=== PATIENT | male | born 1945 | race African-American/Black ===

== ENCOUNTER 2016-07-27 05:41 | Inpatient (IN) | payer OTHER ==
[~2016-07-27] VITALS: Ht 188 cm; Wt 112.0 kg
--- NOTE | ~2016-07-27 | HC ---
[facility] [place] [address] CONSULTATION Name: DONTE GAN Room #: 203-P [facility] IN .R.#: [id number] Admission: 07/27/16 Attend Phys: Brad Murrell MD Discharge: 07/31/16 Date of : 47 Report #: [id number] THIS REPORT FOR: //name// CC: Ceasar Mendez FAM unknown Brad Murrell PRIMARY CARE PHYSICIAN: Not known. REFERRING PHYSICIAN: Brad Murrell M.D. REASON FOR REFERRAL: Hypotension and dyspnea. HISTORY OF PRESENT ILLNESS: The patient is a 71-year-old -[place] male who was brought from his nursing care facility to the Emergency Room due to hypotension. His blood pressure was said to be 80/40 mmHg. A pulmonary critical consultation was requested. The patient resides at a retirement due to multiple medical problems including right BKA, end-stage renal disease requiring hemodialysis. According to records, the patient became argumentative earlier today and wanted to get out of bed. The patient uses O2 chronically. When they assessed him, the patient was found to be hypotensive and he proceeded to the Emergency Room. The patient is more awake now. He states that his back hurts. Otherwise, he states that he feels fine. He does not know why they have brought him to the hospital. Currently, he denies any dyspnea, chest pain or productive cough. PAST MEDICAL HISTORY: The patient was last hospitalized in March 2016 at [facility] for hyperkalemia. He had been seen by this physician in September. PAST MEDICAL HISTORY: Revealed end-stage renal disease due to longstanding diabetes mellitus, on hemodialysis, lumbar spinal stenosis with multiple back surgeries, leading to paraplegia due to severe spinal stenosis, dyslipidemia, sick sinus syndrome, status post permanent pacemaker placement, permanent atrial fibrillation on chronic anticoagulation, diabetes mellitus type 2 and hypertension. PAST SURGICAL HISTORY: As mentioned above including multiple back surgeries, right BKA, fistula placement for his dialysis, cholecystectomy and prior knee surgery. ALLERGIES: MORPHINE, FENTANYL, LOPRESSOR, CLONIDINE and DILTIAZEM, which causes [facility] [address] [place] [address] CONSULTATION Name: DONTE GAN Room #: 203-P [facility] IN M.R.#: [id number] Admission: 07/27/16 Attend Phys: Brad Murrell MD Discharge: 07/31/16 Date of : 47 Report #: [id number]. MEDICATIONS: List reviewed and is in the MAR. FAMILY HISTORY: Noncontributory. SOCIAL HISTORY: He resides at a nursing care facility. He denies any tobacco or alcohol use. He states that he does have family who lives in town. REVIEW OF SYSTEMS: As above, otherwise 10-point system review negative. He has been on O2, more recently at 2 liters chronically. PHYSICAL EXAMINATION: GENERAL: He is awake, in no apparent distress. VITAL SIGNS: Temperature is 98 degrees Fahrenheit, pulse is 60, respiratory rate is 18, blood pressure 125/80 mmHg and saturation 100%. HEENT: Normocephalic and atraumatic. NECK: Supple, without any lymphadenopathy or thyromegaly. CHEST: Breath sounds are decreased without obvious wheezes. No rales. CARDIOVASCULAR: Heart sounds are distant. No obvious murmurs or gallop. Pulses are 2+/4+ bilaterally. ABDOMEN: Soft, obese, moderately distended. Bowel sounds are distant. GENITOURINARY: Deferred. RECTAL: Deferred. EXTREMITIES: Remarkable for right BKA, otherwise no cyanosis, clubbing or edema. LABORATORY DATA: The patient has undergone extensive workup since admission. This includes V/Q scan which showed low probability scan. Leg Doppler ultrasound was negative for DVT. CT abdomen and pelvis shows mild right hydroureteronephrosis, left and distal colon distension with stool suggesting constipation and hepatic steatosis. Ammonia level was normal. Sodium 136, potassium 7.1, chloride 96, CO2 is 33, BUN is 58 and creatinine is 5.3. Liver function tests are mildly abnormal. WBC 6900, hemoglobin is 12.3 and platelets are normal. INR is 1.6. Arterial blood gas revealed pH 7.24, pCO2 of 61, pO2 of 91 on 2 liters of O2. Albumin is 2.8. IMPRESSION AND PLAN: 1. Apparent hypotension in this 71-year-old -[place]ian male with multiple medical problems including end-stage renal disease, apparent chronic hypoxic respiratory failure, paraplegia due to multiple back surgeries. His hypotension appears to have resolved. I do not think it is related to pulmonary embolus, given the low probability scan along with negative leg Doppler ultrasound. Note that low probability scan still runs a low risk for pulmonary embolus, but clinically I do not think the patient has pulmonary embolus at this time. [address] [place] [address] CONSULTATION Name: DONTE GAN Room #: 203-P [facility] IN M.R.#: [id number] Admission: 07/27/16 Attend Phys: Brad Murrell MD Discharge: 07/31/16 Date of : 47 Report #: [id number] 2. Chronic hypercapnic hypoxic respiratory insufficiency. The patient has been on 2 liters of O2. Given his body habitus with morbid obesity, suspect component of obesity hypoventilation syndrome and probable obstructive sleep apnea. Would recommend keeping his saturation around 88%-90% to avoid paradoxical hypercapnia. 3. Abdominal distention, CT of the abdomen suggest constipation. Bowel regimen to help will be beneficial. 4. End-stage renal disease with hyperkalemia. 5. Permanent atrial fibrillation, on chronic anticoagulation. The patient had been on Coumadin in the past. This again makes pulmonary embolus less likely. 6. Paraplegia due to severe lumbar stenosis with multiple back surgeries. The patient appears to be doing fairly well from a pulmonary standpoint. Wean O2 for saturation up to 88%-90%. Continue other medical management as you are including treatment of hyperkalemia. The patient will benefit from bowel regimen given constipation. If able, the patient should be screened for possible sleep apnea. This can be performed as an outpatient. Thank you for this consultation. <ELECTRONICALLY SIGNED> By: Steve Bardales MD 08/01/16 1634 18 [id number] Steve Bardales MD /nt
--- NOTE | ~2016-07-27 | HC ---
[facility] [place] [address] CONSULTATION Name: DONTE GAN Room #: 203-P [facility] IN ..#: [id number] Admission: 07/27/16 Attend Phys: Brad Murrell MD Discharge: 07/31/16 Date of : 47 Report #: [id number] THIS REPORT FOR: //name// CC: Ceasar Mendez FAM unknown Brad Murrell REASON FOR CONSULTATION: ESRD. REASON FOR PRESENTATION: Elevated potassium. HISTORY OF PRESENT ILLNESS: The patient was transferred from his nursing facility. He had been seen multiple times by our team in the last few years. He has end-stage renal disease, maintained on hemodialysis every Thursday, Thursday and Thursday. He is known to have paraplegia, with multiple back surgeries in the past. He has a right below-knee amputation. He was last seen by back in March of last year. He presented from his dialysis facility not feeling well. No chest pain or shortness of breath. Investigations are being done for his presenting complaints and on labs, he was found to have an elevated potassium and I was asked to manage his end-stage renal disease. Looking at the labs that were sent from his dialysis facility, it does look like that the patient suffers from hyperkalemia. PAST MEDICAL HISTORY: 1. End-stage renal disease, maintained on dialysis every Thursday, Thursday and Thursday. 2. Diabetes mellitus. 3. Hypertension. 4. Multiple back surgeries. 5. Paraplegic. 6. Right below-knee amputation. 7. Pacemaker insertion. 8. Laparoscopic cholecystectomy. MEDICATIONS: 1. Amitriptyline. 2. Sensipar. 3. Metoclopramide. 4. Omeprazole. 5. Actos. 6. Renvela. 7. Coumadin. SOCIAL HISTORY: He resides in a nursing facility. . No drug or alcohol abuse. FAMILY HISTORY: Hypertension, as he stated. [facility] [address] [place] [address] CONSULTATION Name: DONTE GAN Room #: 203-P [facility] IN [facility].#: [id number] Admission: 07/27/16 Attend Phys: Brad Murrell MD Discharge: 07/31/16 Date of : 47 Report #: [id number] REVIEW OF SYSTEMS: GENERAL: Significant for weakness. CARDIOVASCULAR: No chest pain. PULMONARY: No cough or hemoptysis. GASTROINTESTINAL: No nausea or vomiting. MUSCULOSKELETAL: Amputation on the right side. Most of the time he is ambulatory. PHYSICAL EXAMINATION: VITAL SIGNS: Blood pressure is 112/60. HEAD AND NECK: No jugular venous distention, no bruit, no thyromegaly. Left-sided pacemaker. CHEST: Decreased air entry bilaterally. CARDIOVASCULAR: Regular. No rub detected. ABDOMEN: Distended. LOWER EXTREMITIES: Right BKA with chronic venous stasis changes on the left side. LABORATORY DATA: Laboratory values reviewed. Potassium is 7.1, BUN is 58 and creatinine is 5.3. White blood cell count 6.9, hemoglobin 12.3. Blood gases sample is not sent yet. Chest x-ray reviewed. CT abdomen and pelvis was reviewed. It does look like that the patient has mild right hydroureteronephrosis with unknown significance at this point. ASSESSMENT, IMPRESSION AND PLAN: 1. End-stage renal disease. 2. Hyperkalemia. 3. Diabetes mellitus. 4. Hypertension. 5. A whole list of other medical issues, including hypoalbuminemia, anemia and peripheral vascular disease. 6. Medical management of his hyperkalemia today. Repeat potassium later today. 7. Dialysis will be arranged for the patient for tomorrow if his potassium does not improve with the medical management today. Otherwise, I will have to dialyze today. 8. We will defer management of his other aspects and medical issues to the admitting hospitalist team. <ELECTRONICALLY SIGNED> By: Ceasar Mendez MD 08/01/16 0926 1018 [id number] Ceasar Mendez MD /nt
--- NOTE | ~2016-07-27 | HC ---
[facility] [place] [address] CONSULTATION Name: DONTE GAN Room #: 203-P [facility] IN ..#: [id number] Admission: 07/27/16 Attend Phys: Brad Murrell MD Discharge: Date of : 47 Report #: [id number] THIS REPORT FOR: //name// CC: Ceasar Mendez FAM unknown Brad Murrell Infectious Disease Consultation REASON FOR CONSULTATION: I was asked to evaluate concerning hypotension and Gram-negative bacteremia. HISTORY OF PRESENT ILLNESS: The patient was a 71-year-old prison resident with end-stage renal disease, diabetes, hypertension, peripheral vascular disease. On day of admission, he was noted to have had hypotension without other specific complaints. He had had some abdominal bloating. Denies being constipated. He has had incontinence of soft stool since being admitted. In the Emergency Room, he was hyperkalemic. He was given some Kayexalate for this. He is on a 3 times a week dialysis schedule. No cough or sputum production. He is on 2 liters of oxygen per nasal cannula. He is on dialysis currently without complaint, although he is very lethargic. He has had a right below knee amputation for vascular disease. ALLERGIES: CLONIDINE, DILTIAZEM, FENTANYL, METOPROLOL, MORPHINE. MEDICATIONS: As noted on his MAR, now on vancomycin and Zosyn. PAST MEDICAL HISTORY: Diabetes, hypertension, hyperlipidemia, end-stage renal disease, right upper extremity AV fistula, right below knee amputation, cholecystectomy, pneumonia, permanent pacemaker, multiple surgeries to his lumbar spine with hardware placed. SOCIAL HISTORY: He has been residing in a prison, uses a wheelchair, nonsmoker, no significant alcohol intake. FAMILY HISTORY: Noncontributory. PHYSICAL EXAMINATION: VITAL SIGNS: Afebrile. Initial blood pressure was , now 144/33 on dialysis. Oxygen 2 liters per nasal cannula. HEENT: Unremarkable. CHEST: Clear anterolaterally. HEART: Regular, without murmur. ABDOMEN: Protuberant. No appreciable masses or hepatosplenomegaly. Mild tenderness. Definitely no rebound and no guarding. EXTREMITIES: Right below knee amputation unremarkable. He was incontinent of [facility] [address] [place] [address] CONSULTATION Name: DONTE GAN Room #: 203-P [facility] IN [facility].#: [id number] Admission: 07/27/16 Attend Phys: Brad Murrell MD Discharge: Date of : 47 Report #: [id number] soft stool. External genitalia unremarkable. Left lower extremity was cool below the knee. He had an ulcer over the patella. He also had an eschar over his medial heel and his first toe on the left. Could not palpate pulses. LABORATORY STUDIES: Sodium 133, potassium 5.5, chloride 96, bicarbonate 27, creatinine 5.7, his initial potassium was 7.1. Liver function test normal. Hemoglobin 12.1, white count 6.0, platelet count 154,000. Segs 68%, 1% band, 18% lymphs. Blood cultures from one taken yesterday morning is growing gram-negative bacilli. Further identification is pending. VQ scan negative. CT scan of abdomen and pelvis showed left basilar infiltrate. Chest x-ray did not confirm this. Abdomen CT showed some hydronephrosis on the right. No stone evident. Large amount of stool in the rectosigmoid. IMPRESSION: A 71-year-old diabetic, end-stage renal disease, hypertension with a hypotensive episode and Gram-negative bacteremia. Sources of his bacteremia would most likely include: From a possible segment of ischemia due to his large amount of retained stool in the distal colon versus right upper urinary tract versus left lung pneumonitis versus left lower extremity wound and ischemia. PLAN: 1. Recommend continuing Zosyn for his antibiotic coverage, pending further micro reports. 2. Repeat blood cultures while on dialysis. 3. Continue with laxatives to decompress the bowel. 4. Obtain any records from nephrology to determine if he has had a previous CAT scan or ultrasound to delineate the duration of his right hydronephrosis. 5. Check Dopplers of his left lower extremity. <ELECTRONICALLY SIGNED> By: Wood Lloyd MD 07/30/16 1027 1101 1148 Wood Lloyd MD /nt
--- NOTE | ~2016-07-27 | EKG ---
[place] [address] [facility] [place] [address] ELECTROCARDIOGRAM REPORT Name: DONTE GAN Nieves Room #: 203-P ADM IN M.R.#: [id number] Admission: 07/27/16 Attend Phys: Brad Murrell MD Discharge: Date of : 47 Report #: [id number] THIS REPORT FOR: //name// [facility] ED Test Date: 2016-07-27 Test Time: 07:09:46 Pat Name: DONTE GAN Department: Room: 203 Gender: M Pillow Cleaner: ANTHONY : 1945 Requested By: Komal Gerard Order Number: [id number] MD: Vernon Burns Measurements Intervals [place] Rate: 60 P: 0 AK: 204 QRS: 129 QRSD: 163 T: 21 QT: 482 QTc: 482 Interpretive Statements Ventricular-paced rhythm No further analysis attempted due to paced rhythm No previous ECG available for comparison Electronically Signed On 07-28-2016 8:05:23 [employer] by Vernon Burns [email or web address] <ELECTRONICALLY SIGNED> By: Vernon Burns MD, [facility] 07/28/16804 8 8 Vernon Burns MD, FACC /EPI
--- NOTE | ~2016-07-27 | H ---
[facility] [place] [address] HISTORY AND PHYSICAL Name: DONTE GAN Room #: 203-P ADM IN M.R.#: [id number] Admission: 07/27/16 Attend Phys: Brad Murrell MD Discharge: Date of : 47 Report #: [id number] THIS REPORT FOR: //name// CC: Ceasar Mendez FAM unknown BEA PENNY DO Brad Murrell DATE OF SERVICE: 07/27/2016 CHIEF COMPLAINT: Low blood pressure. HISTORY OF PRESENT ILLNESS: The patient is a 71-year-old pen[facility] resident with history of spinal stenosis, polyneuropathy, end-stage renal disease on hemodialysis, type 2 diabetes and hypertension, who was brought into the Emergency Room because of low blood pressure. [facility] blood pressure [facility] the [facility] was 80/40. The patient noticed to have low blood pressure this morning when the patient became augmentative and wanted to get rid of that. He normally uses oxygen at the penitentiary. Workup in the Emergency Room included a CAT scan, which showed a left basilar infiltrate and hyperkalemia. The patient complains of bloated feeling in his abdomen. If he says he has not been constipated, he has had regular BMs. He normally gets dialyzed Thursday, Thursday and Thursday, and last dialysis was 2 days ago. He is found to be hyperkalemic. He has been evaluated by Dr. Mendez and the patient has received insulin dextrose, albuterol high dose along with Kayexalate. The patient might be scheduled for dialysis as per Dr. Mendez. The patient has had cough with dark sputum. Denies any chest pain or dizziness. Denies any nausea or vomiting. PAST MEDICAL HISTORY: Significant for diabetes, hypertension and hyperlipidemia. He is already on hemodialysis. Right arm fistula. Knee surgery, cholecystectomy and right below knee amputation. He was admitted with pneumonia in 03/2016. He has a pacemaker. He has had a back surgery x 4. ALLERGIES: HE IS ALLERGIC TO CLONIDINE, DILTIAZEM, FENTANYL, METOPROLOL, AND MORPHINE. PLEASE LOOK AT THE NURSING DOCUMENTATION FOR THE REACTION. HOME MEDICATIONS: Please look at the nursing documentation. Home meds were reviewed. SOCIAL HISTORY: He is a penitentiary resident. He is primarily bed bound and wheelchair bound. He denies any smoking, alcohol abuse, or illicit drug abuse. FAMILY HISTORY: Significant for hypertension. [facility] [address] [place] [address] HISTORY AND PHYSICAL Name: DONTE GAN Nieves Room #: 203-P [facility].#: [id number] Admission: 07/27/16 Attend Phys: Brad Murrell MD Discharge: Date of : 47 Report #: [id number] REVIEW OF SYSTEMS: CONSTITUTIONAL: The patient is kind of lethargic, but he does awake upper and he is oriented to self. He follows simple commands. Review of systems is kind of limited from the patient at present. PHYSICAL EXAMINATION: VITAL SIGNS: Reveal blood pressure initially was 78/46, , heart rate of 60 per minute, afebrile. GENERAL: The patient is lethargic, but he does wake up and answers questions. He is oriented to person and self. EYES: Pupils are equal and reactive to light. THROAT: Very dry oral mucosa. NECK: Supple, no JVD, no bruit, no lymphadenopathy. CARDIOVASCULAR SYSTEM: S1, S2, negative S3. CHEST: Bilateral air entry present, few wheezes noted in the bases, crackles noted in the bases, more in the left base. ABDOMEN: Soft, bowel sounds present, no mass, no organomegaly, no tenderness. Abdomen is mildly distended. EXTREMITIES: Periphery: Right below knee amputation. On the left leg, there is trace to 1+ edema. Dorsalis pedis is very feeble to 1+ on the left side. He has some ischemic changes to the tip of his great toe. He has a 2 cm superficial wound with an eschar on the left knee. LABORATORY DATA: Reviewed. EKG showed a paced rhythm. His potassium was elevated at , BUN and creatinine of 58 and 5.3. AST and ALT are within normal limit. Total protein was 2.0. Albumin is 2.8. White count is 6.9 with 70% neutrophils. Lactate is 1.5, hemoglobin is 12.3 and platelet is 163. He had a venous of lower extremities which showed no evidence of any deep venous thrombosis. V/Q scan was reported as low probability for PE. Chest x-ray showed cardiomegaly without any overt failure. CT of the abdomen and pelvis showed constipation, hepatic steatosis, and left basilar infiltrate. ASSESSMENT AND PLAN: 1. Hypertension. It could be secondary to early sepsis. His blood pressure has improved in the Emergency Room. We will monitor his blood pressure closely. 2. Left basilar pneumonia. The patient will be treated with Zosyn and vancomycin. Follow cultures and adjust antibiotic as needed, will also be placed on DuoNeb. 3. Hyperkalemia. The patient has been treated with Kayexalate, insulin, Dextrose and high dose albuterol. The patient has been evaluated by renal and he will be hemodialyzed as per renal. 4. End-stage renal disease, hemodialysis as per renal. 5. Diabetes. We will place him on Accu-Chek and sliding scale insulin. We will continue him on pioglitazone. 6. Deep vein thrombosis prophylaxis. The patient is already on Coumadin. We [facility] [address] [place] [address] HISTORY AND PHYSICAL Name: DONTE GAN Room #: 203-P ADM IN M.R.#: [id number] Admission: 07/27/16 Attend Phys: Brad Murrell MD Discharge: Date of : 47 Report #: [id number] will recheck on his INR. 7. History of atrial flutter, on Coumadin. We will recheck his INR and continue his Coumadin. 8. History of hypertension. Presently, his blood pressure is on the low end, we will hold off on Coreg at present and monitor closely. 9. Peripheral vascular disease and status post right below knee amputation. 10. Generalized debility and mild to moderate protein malnutrition. we will also go ahead and check on his blood gases to rule out any hypercapnia. <ELECTRONICALLY SIGNED> By: Brad Murrell MD 07/28/16 0949 1047 2309 Brad Murrell MD /nt
[~2016-07-27 05:41] MED LIST: ACTOS 45 MG45 M1 PO; AMITRIPTYLINE H25 M2 PO; ASPIR 8181 MG PO; BACITRACIN 500U30 G1 TOP; CARVEDILOL12.5 MG PO; CITRATE OF MAG296 ML PO; COLACE100 MG PO; COUMADIN 5 MG TA5 M1 PO; COUMADIN7.5 MG PO; DOXYCYCLINE 10100 M1 PO; FENTANYL PA25 MCG/HR TRANSDERM; GLUCOSE GEL38 GM; GLUCOSE1 EACH PO; HEPARIN SO1000 UNIT2 IV; HYDROCODON-ACE1 EAC7 PO; IBUPROFEN 200200 M1 PO; IPRAT-ALBUT 0.5-3 ML IH; JANUVIA25 MG PO; KAYEXALATE15 GM/601 GT; KAYEXALATE15 GM/601 PO; LACTULOSE10 GM/152; LEVAQUIN 500 M500 M2 PO; MEGESTROL ACETA40 MG PO; MELATONIN3 MG PO; MIRALAX17 GM PO; MOBIC15 MG PO; MUCINEX TA600 MG/TA2 PO; NEPHROCAPS SOFT1 CAP PO; NOVOLOG100 UNIT/1 SUBQ; OMEPRAZOLE40 MG PO; OXYCODONE HCL5 MG PO; OXYCONTIN10 M1 PO; PEG3350510 GM PO; PIOGLITAZONE15 MG PO; PRO-STAT LIQUID30 M1 PO; REGLAN 10 MG TA10 MG PO; RENAL CAPS SOFTG1 MG PO; RENVELA800 MG PO; SENNA CONCENTR8.6 MG PO; SENOKOT-S1 TA1 PO; SENSIPAR 30 MG30 M1 PO; SENSIPAR 30 MG30 MG PO; TYLENOL325 MG PO; VANCOMYCIN HCL1 GM IV; ZOFRAN ODT4 MG DISSOLVE
[2016-07-27 05:49] VITALS: BP 78/46
[2016-07-27 06:20] LABS: HEMATOCRIT 37.5 % (42.0-52.0); HEMOGLOBIN 12.3 gm/dL (14.0-18.0); MCH 31.3 pg (26.0-34.0); MCHC 32.9 % (28.0-37.0); PLATELET COUNT 163 thou/uL (150-400); RBC 3.95 mil/uL (4.50-6.00); RDW 16.7 % (10.5-14.5); WBC 6.9 thou/uL (4.0-11.0)
[2016-07-27 06:23] LABS: MANUAL DIFF YES
[2016-07-27 06:41] LABS: CALCIUM 8.6 mg/dL (8.5-10.1); CREATININE 5.3 mg/dL (0.6-1.3)
[2016-07-27 06:45] LABS: POTASSIUM 7.1 mmol/L (3.5-5.1)
[2016-07-27 06:46] LABS: ALBUMIN 2.8 g/dL (3.4-5.0); DIRECT BILIRUBIN 0.1 mg/dL (<0.1-0.3); MAGNESIUM 2.3 mg/dL (1.8-2.4); TOTAL BILIRUBIN 0.9 mg/dL (<0.1-1.0)
[2016-07-27] MEDS ORDERED: TESSALON PERLE100 MG PO (06:51)
[2016-07-27] MEDS ORDERED: KLOR-CON 1010 MEQ PO (06:51)
[2016-07-27 07:30] VITALS: BP 117/60
[2016-07-27 08:44] LABS: ABSOLUTE NEUTROPHILS 4.9 thou/uL (1.4-8.2); ANISOCYTOSIS 1+; TOTAL CELL COUNT 100
[2016-07-27 11:02] LABS: INR 1.6
[2016-07-27 11:30] VITALS: BP 121/68
[2016-07-27 11:45] VITALS: BP 120/74
[2016-07-27 12:15] LABS: ABG SAMPLE TYPE ARTERIAL; BE(vivo) -0.3 mmol/L (-2 to +3); HCO3 27.8 mmol/L (22.0-26.0); LACTATE 1.79 mmol/L (0.5-2.0); O2(CT) 17.8 mL/dL (15.0-23.0); O2Hb 95.4 % (92.0-98.0); PO2 100.6 mmHg (80.0-100.0); sO2 96.7 % (92.0-98.0); tCO2 29.6 mmol/L (24.0-30.0)
[2016-07-27 12:16] LABS: STICK SITE L.BRACHIAL; pH 7.276 (7.360-7.450)
[2016-07-27 16:30] VITALS: BP 125/77
[2016-07-27 20:02] LABS: ABG SAMPLE TYPE ARTERIAL; HCO3 26.2 mmol/L (22.0-26.0); LACTATE 2.19 mmol/L (0.5-2.0); O2(CT) 16.7 mL/dL (15.0-23.0); O2Hb 94.2 % (92.0-98.0); PCO2 61.5 mmHg (35.0-45.0); PO2 91.3 mmHg (80.0-100.0); pH 7.248 (7.360-7.450); sO2 95.5 % (92.0-98.0); tCO2 28.1 mmol/L (24.0-30.0)
[2016-07-27 20:03] LABS: STICK SITE L.BRACHIAL
[2016-07-27 20:37] VITALS: BP 112/69
[2016-07-28] VITALS (7 sets, daily range): BP systolic 109–144; BP diastolic 33–71
[2016-07-28 08:36] LABS: HEMATOCRIT 37.4 % (42.0-52.0); HEMOGLOBIN 12.1 gm/dL (14.0-18.0); MCH 30.9 pg (26.0-34.0); MCHC 32.3 % (28.0-37.0); MCV 95.5 fL (80.0-100.0); PLATELET COUNT 154 thou/uL (150-400); RBC 3.91 mil/uL (4.50-6.00); RDW 17.3 % (10.5-14.5)
[2016-07-28 08:37] LABS: MANUAL DIFF YES
[2016-07-28 08:49] LABS: ALBUMIN 2.6 g/dL (3.4-5.0); CALCIUM 8.1 mg/dL (8.5-10.1); CREATININE 5.7 mg/dL (0.6-1.3); MAGNESIUM 2.2 mg/dL (1.8-2.4); PHOSPHORUS 4.7 mg/dL (2.5-4.9); POTASSIUM 5.5 mmol/L (3.5-5.1)
[2016-07-28 09:06] LABS: ABSOLUTE NEUTROPHILS 4.1 thou/uL (1.4-8.2); ANISOCYTOSIS 1+; TOTAL CELL COUNT 100
[2016-07-28 09:08] LABS: INR 1.7; PROTIME 18.1 Seconds (9.3-11.4)
[2016-07-29 03:14] VITALS: BP 94/53
[2016-07-29 07:30] VITALS: BP 101/57
[2016-07-29 07:35] LABS: INR 1.9; PROTIME 19.9 Seconds (9.3-11.4)
[2016-07-29 11:30] VITALS: BP 97/49
[2016-07-29 16:40] VITALS: BP 81/49
[2016-07-29 19:39] VITALS: BP 82/35
[2016-07-30 03:27] VITALS: BP 93/54
[2016-07-30 07:28] LABS: HEMATOCRIT 34.7 % (42.0-52.0); HEMOGLOBIN 11.4 gm/dL (14.0-18.0); MCH 31.2 pg (26.0-34.0); MCHC 32.9 % (28.0-37.0); MCV 94.9 fL (80.0-100.0); PLATELET COUNT 136 thou/uL (150-400); RBC 3.65 mil/uL (4.50-6.00); RDW 16.7 % (10.5-14.5); WBC 5.3 thou/uL (4.0-11.0)
[2016-07-30 07:34] LABS: MANUAL DIFF YES
[2016-07-30 07:37] LABS: ALBUMIN 2.4 g/dL (3.4-5.0); CALCIUM 7.9 mg/dL (8.5-10.1); CREATININE 5.6 mg/dL (0.6-1.3); POTASSIUM 4.7 mmol/L (3.5-5.1); TOTAL BILIRUBIN 0.8 mg/dL (<0.1-1.0); TOTAL PROTEIN 6.6 g/dL (6.4-8.2)
[2016-07-30 07:45] VITALS: BP 110/64
[2016-07-30 08:10] LABS: ABSOLUTE NEUTROPHILS 3.7 thou/uL (1.4-8.2); ANISOCYTOSIS 1+; PLATELET ESTIMATE DECREASED; TOTAL CELL COUNT 100
[2016-07-30 08:45] LABS: INR 1.9; PROTIME 19.8 Seconds (9.3-11.4)
[2016-07-30 11:25] VITALS: BP 91/51
[2016-07-30 16:50] VITALS: BP 101/63
[2016-07-30 19:58] VITALS: BP 114/59
[2016-07-31 03:46] VITALS: BP 109/65
[2016-07-31 09:10] VITALS: BP 137/72
[2016-07-31 13:00] VITALS: BP 130/70
[2016-07-31 15:24] VITALS: BP 165/70
[2016-07-31] MEDS ORDERED: DUONEB 2.5-0.5 M3 ML INH (15:38)
[2016-07-31] MEDS ORDERED: MELATONIN3 MG PO (15:38)
[2016-07-31] MEDS ORDERED: CARVEDILOL12.5 MG PO (15:38)
[2016-07-31] MEDS ORDERED: CIPRO500 MG PO (15:38)
== END 2016-07-31 18:17 | DRG 177 ==
LOC: ER 05:41 → 2N 08:35 → EROBS 08:35 → 2N 11:32
PROVIDERS: Emergency Medicine; Internal Medicine; Internal Medicine Endocrinology, Diabetes & Metabolism
PROC: 5A09357 Assistance with Respiratory Ventilation, Less than 24 Consecutive Hours, Continuous Positive Airway Pressure (ICD-10-PCS; 2016-07-27)
PROC: 5A1D60Z (ICD-10-PCS; principal; 2016-07-28)
DX: J15.6 Pneumonia due to other Gram-negative bacteria (principal); N18.6 End stage renal disease; J96.22 Acute and chronic respiratory failure with hypercapnia; J96.21 Acute and chronic respiratory failure with hypoxia; G82.20 Paraplegia, unspecified; E44.0 Moderate protein-calorie malnutrition; I12.0 Hypertensive chronic kidney disease with stage 5 chronic kidney disease or end stage renal disease; E87.5 Hyperkalemia; I49.5 Sick sinus syndrome; I48.2 Chronic atrial fibrillation; E78.5 Hyperlipidemia, unspecified; M48.06 Spinal stenosis, lumbar region; E11.51 Type 2 diabetes mellitus with diabetic peripheral angiopathy without gangrene; K59.00 Constipation, unspecified; E11.649 Type 2 diabetes mellitus with hypoglycemia without coma; R53.81 Other malaise; I95.9 Hypotension, unspecified; E11.22 Type 2 diabetes mellitus with diabetic chronic kidney disease; E78.00 Pure hypercholesterolemia, unspecified; Z90.49 Acquired absence of other specified parts of digestive tract; Z95.0 Presence of cardiac pacemaker; Z89.511 Acquired absence of right leg below knee; Z88.6 Allergy status to analgesic agent; Z88.8 Allergy status to other drugs, medicaments and biological substances; Z79.899 Other long term (current) drug therapy; Z79.82 Long term (current) use of aspirin; Z99.2 Dependence on renal dialysis; Z79.01 Long term (current) use of anticoagulants; Z68.31 Body mass index [BMI] 31.0-31.9, adult
CPT/HCPCS: 10081; 32100

== ENCOUNTER 2017-11-22 21:56 | Inpatient (IN) | payer OTHER ==
[~2017-11-22] VITALS: Ht 180.3 cm; Wt 112.3 kg
--- NOTE | ~2017-11-22 | HC ---
[facility] [place] [address] CONSULTATION Name: DONTE GAN Room #: 350-P [facility] IN M.R.#: [id number] Admission: 11/23/17 Attend Phys: Torres Singh DO Discharge: Date of : 47 Report #: [id number] THIS REPORT FOR: //name// CC: FAM unknown Torres Singh DATE OF SERVICE: 11/23/2017 REASON FOR PRESENTATION: Shortness of breath. REASON FOR CONSULTATION: End-stage renal disease. HISTORY OF PRESENT ILLNESS: This is a 72-year-old with past medical history of diabetes mellitus, hypertension, end-stage renal disease, maintained on hemodialysis every Thursday, Thursday, Thursday, status post pacemaker insertion. He does have obstructive sleep apnea and COPD. He was found to be hard to arouse on the day he presented to the Emergency Room. He stated that he had been having some shortness of breath. He also reported to have massive swellings of both upper extremities and lower extremities. On arrival to the Emergency Room, he was found to have pulmonary venous congestion suggestive of pulmonary edema. When I evaluated him this morning, he was lethargic. I ordered the blood gas and this revealed severe CO2 narcosis, requiring CPAP. I am being asked to manage his end-stage renal disease. PAST MEDICAL HISTORY: 1. End-stage renal disease. 2. Diabetes mellitus. 3. Hypertension. 4. Right AV fistula. 5. Back surgery. 6. Status post pacemaker insertion. 7. Peripheral vascular disease, status post BKA. 8. Paraplegia. 9. Atrial flutter. 10. COPD, obstructive sleep apnea. FAMILY HISTORY: Significant for diabetes mellitus and hypertension. SOCIAL HISTORY: Former smoker, quit 15 years ago. Stays in a nursing facility. No drug or alcohol abuse. REVIEW OF SYSTEMS: The patient was very lethargic this morning and was not able to provide me with the details of the review of system. MEDICATIONS: 1. Carvedilol. [facility] [address] [place] [address] CONSULTATION Name: DONTE GAN Room #: [address] [place] [address] [place] [facility].#: [id number] Admission: 11/23/17 Attend Phys: Torres Singh DO Discharge: Date of : 47 Report #: [id number] 2. Cinacalcet. 3. Sevelamer. 4. Amitriptyline. 5. Aspirin. 6. Lactulose. 7. Sitagliptin. PHYSICAL EXAMINATION: GENERAL: The patient was very lethargic, goes into episodes of sleepiness. VITAL SIGNS: Temperature was 37. Blood pressure was 112/59. HEAD AND NECK: Pickwickian features present. CARDIOVASCULAR: No rub detected, distant. CHEST: Bilateral crackles. ABDOMEN: Soft, nontender. LOWER EXTREMITIES: +3 edema with right below-knee amputation. LABORATORY DATA: Laboratory values reviewed. Blood gas with a pH of 7.2 and a pH of 65. Chemistry revealed sodium of 132, potassium 5.2, BUN of 70, creatinine of 6.3. IMAGING: Chest x-ray reviewed. Cardiomegaly present with bilateral pulmonary infiltrate. ASSESSMENT, IMPRESSION AND PLAN: 1. End-stage renal disease. 2. Respiratory failure, hypercapnic with CO2 narcosis. 3. Hyponatremia. 4. Hyperkalemia. 5. Chronic obstructive pulmonary disease. 6. Peripheral vascular disease. 7. Diabetes mellitus. 8. The patient will need to be placed on CPAP due to his CO2 narcosis. 9. Dialysis will be arranged with aggressive ultrafiltration today. 10. Routine care of his diabetes mellitus and hypertension. 11. Watch pulmonary status. 12. Aggressive ultrafiltration to try to help his volume status and his breathing issues. 13. Need pulmonary consultation. <ELECTRONICALLY SIGNED> By: Ceasar Mendez MD 11/25/17 0817 0855 [id number] Ceasar Mendez MD /nt
--- NOTE | ~2017-11-22 | HC ---
[facility] [place] [address] CONSULTATION Name: DONTE GAN Room #: 350-[facility] IN ..#: [id number] Admission: 11/23/17 Attend Phys: Torres Singh DO Discharge: 11/26/17 Date of : 47 Report #: [id number] THIS REPORT FOR: //name// CC: FAM unknown Torres Singh DATE OF SERVICE: 11/25/2017 TYPE OF REPORT: Pulmonary consultation. REFERRING PHYSICIAN: Torres Singh D.O. REASON FOR REFERRAL: COPD and chronic respiratory failure. HISTORY OF PRESENT ILLNESS: The patient is a 72-year-old -Chinese male who was brought to the Emergency Room when he was found to be hard to arouse. With his history of chronic lung disease, a pulmonary consultation was requested. The patient has multiple medical problems. He was previously hospitalized in July 2016. Going through the records, he was doing fairly well until the day of presentation and he was found to be difficult to arouse that evening. He was taking a nap at that time. For that reason, he was brought to the Emergency Room. When seen in the ER, he was awoken, he reports cough productive of clear sputum. He denies any fever, night sweats or chills, chest pain or productive cough. On initial evaluation including arterial blood gas, the patient was found to be iigmu-oh-thxikqe hypercapnic respiratory failure. For that reason, a pulmonary consultation requested. The patient has been seen by this physician from his last admission in July of 2016. There is also felt to have obesity hypoventilation syndrome along with sleep apnea. The patient had been given a BiPAP device in the past. It appears the patient may not have been compliant with the use of BiPAP. Otherwise, denies any complaints. He is currently undergoing dialysis. PAST MEDICAL HISTORY: Notable for end-stage renal disease due to longstanding diabetes mellitus, on hemodialysis; lumbar spinal stenosis; multiple back surgeries; paraplegia due to severe spinal stenosis; dyslipidemia; sick sinus syndrome, status post permanent pacemaker placement; permanent atrial fibrillation, on chronic anticoagulation; diabetes mellitus type 2; hypertension; COPD with presume RANDI and sleep apnea. [facility] [address] [place] [address] CONSULTATION Name: DONTE GAN Room #: 350-P [facility] IN M.R.#: [id number] Admission: 11/23/17 Attend Phys: Torres Singh DO Discharge: 11/26/17 Date of : 47 Report #: [id number] PAST SURGICAL HISTORY: As mentioned above including right BKA, fistula placement for hemodialysis, cholecystectomy and prior knee surgery. ALLERGIES: To MORPHINE; FENTANYL; LOPRESSOR; CLONIDINE and DILTIAZEM, which causes rash. HOME MEDICATIONS: List is reviewed. FAMILY HISTORY: Noncontributory. SOCIAL HISTORY: The patient resides in a senior living. Currently denies any tobacco or alcohol use. He has family who lives in town. REVIEW OF SYSTEMS: As mentioned above, otherwise 10-point system review negative. PHYSICAL EXAMINATION: GENERAL: He is awake and alert, in no apparent distress. VITAL SIGNS: Temperature is 98, respiratory rate is 20, pulse is 60, blood pressure is 110/65 mmHg and saturation 96%. HEENT: Normocephalic and atraumatic. NECK: Supple, without lymphadenopathy or thyromegaly. CHEST: Breath sounds are fair due to poor effort. Otherwise, no rales or wheezes. CARDIOVASCULAR: Normal S1 and S2. There are no murmurs or gallop. There is no JVDs. No carotid bruit. Pulses are 2+/4+ bilaterally. ABDOMEN: Soft and nontender. No organomegaly or masses felt. GENITOURINARY: Deferred. RECTAL: Deferred. EXTREMITIES: There are no signs of clubbing or edema. It is also remarkable for right BKA. RADIOLOGICAL DATA: Chest x-ray shows cardiomegaly, mild atelectasis in the left base, otherwise no obvious infiltrates. LABORATORY DATA: Electrolytes show sodium 132, potassium 5.2 and creatinine 6.3. WBC 9900 and hemoglobin 12.7. Arterial blood gas revealed pH 7.25, pCO2 of 65 and pO2 of 112 on O2. IMPRESSION: 1. Rgksh-dk-vltcfeu hypercapnic hypoxic respiratory failure in this 72-year-old -Chinese male. Etiology is felt to be related to underlying obesity hypoventilation syndrome, obstructive sleep apnea . 2. History of chronic obstructive pulmonary disease without obvious exacerbation. 3. Probable obstructive sleep apnea, obesity hypoventilation syndrome, I think [address] [address] CONSULTATION Name: MALIKDONTE J Room #: 350-P [facility] IN M.R.#: [id number] Admission: 11/23/17 Attend Phys: Torres Singh DO Discharge: 11/26/17 Date of : 47 Report #: [id number] the patient will benefit from bilevel positive airway pressure device to be used during sleep and p.r.n. 4. End-stage renal disease. 5. Encephalopathy, likely metabolic and toxic, much improved. 6. End-stage renal disease, undergoing hemodialysis. 7. Chronic hypercapnic respiratory failure, the patient has been on 2 liters of oxygen. 8. Morbid obesity. 9. Permanent atrial fibrillation, on chronic anticoagulation. 10. Severe lumbar stenosis resulting in paraplegia, multiple back surgeries. 11. Status post right below-knee amputation. RECOMMENDATION: Continue current care, BiPAP during sleep and p.r.n. Continue bronchodilators. Keep saturation around 90%-98%. Thank you for this consultation. <ELECTRONICALLY SIGNED> By: Steve Bardales MD 11/27/17 1659 1548 55 Steve Bardales MD /nt
--- NOTE | ~2017-11-22 | EKG ---
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1945 Requested By: Wood Hernandez Order Number: [id number] MD: Vernon Burns Measurements Intervals [place] Rate: 60 P: 0 MS: 202 QRS: 140 QRSD: 147 T: -5 QT: 467 QTc: 467 Interpretive Statements Ventricular-paced rhythm No further analysis attempted due to paced rhythm Compared to ECG 07/27/2016 07:09:46 No significant changes Electronically Signed On 11-23-2017 8:13:49 CDT by Vernon Burns [email or web address] <ELECTRONICALLY SIGNED> By: Vernon Burns MD, [facility] 11/23/17 0813 34 34 Vernon Burns MD, [facility] /EPI
--- NOTE | ~2017-11-22 | 2DMMODE ---
[facility] [place] [address] 2 D/M-MODE ECHOCARDIOGRAM Name: MALIKDONTE Nieves Room #: 350-P [facility] IN [facility]#: [id number] Admission: 11/23/17 Attend Phys: Torres Singh, Discharge: Date of : 47 Date of Service: 11/23/17 1123 Report #: [id number] THIS REPORT FOR: //name// APPROVED REPORT Study performed: 11/23/2017 09:37:30 EXAM: Comprehensive 2D, Doppler, and color-flow Echocardiogram Patient Location: Bedside Status: routine BSA: 2.31 HR: 60 bpm BP: 112/59 mmHg Other Information Study Quality: Technically DifficultTechnically Limited Indications Diabetes Pacemaker Hypertension/HDD Echo Enhancing Agent Indication: Endocardial border delineation Agent(s) / Amount(s) Used: , Optison 3 cc 2D Dimensions LVEF(%): 61.76 (>50%) IVSd: 17.43 (7-11mm) LVOT Diam: 23.23 (18-24mm) LVDd: 45.99 mm PWd: 16.98 (7-11mm) Ascending Ao: 30.73 (22-36mm) LVDs: 30.76 (25-40mm) Aortic Root: 39.62 mm Bell's LVEF: 61.76 % Pulmonary Valve PV Peak Minh.: 0.86 m/s PV Peak Gr.: 2.98 mmHg Tricuspid Valve TR Peak Minh.: 2.56 m/s TR Peak Gr.: 26.22 mmHg PA Pressure: 26.00 mmHg [facility] [address] [address] 2 D/M-MODE ECHOCARDIOGRAM Name: DONTE GAN Room #: 350-P [facility] IN [facility]#: [id number] Admission: 11/23/17 Attend Phys: Torres Singh, Discharge: Date of : 47 Date of Service: 11/23/17 1123 Report #: [id number] Left Ventricle The left ventricle is normal size. Moderate concentric left ventricular hypertrophy. The left ventricular systolic function is normal. The left ventricular ejection fraction is within the normal range. LVEF is 55%. This study is not technically sufficient to allow evaluation of the LV diastolic function. Right Ventricle Right ventricle is dilated. Right ventricle is hypokinetic. Device lead is present in the right ventricle. Atria Left atrium is at the upper limits of normal. Right atrium is at the upper limits of normal. Pacemaker lead is present in the right atrium. Aortic Valve The aortic valve is normal in structure. No aortic regurgitation is present. There is no aortic valvular stenosis. Mitral Valve The mitral valve is normal in structure. Trace mitral regurgitation. No evidence of mitral valve stenosis. Tricuspid Valve The tricuspid valve is normal in structure. Mild tricuspid regurgitation. Pulmonic Valve The pulmonary valve is normal in structure. Trace pulmonic regurgitation. Great Vessels The aortic root is normal in size. The inferior vena cava is not well visualized. Pericardium There is no pericardial effusion. <Conclusion> The left ventricle is normal size. Moderate concentric left ventricular hypertrophy. LVEF is 55%. Right ventricle is dilated. Device lead is present in the right ventricle. The aortic valve is normal in structure. [facility] [address] [place] [address] 2 D/M-MODE ECHOCARDIOGRAM Name: MALIKDONTE Nieves Room #: 350-P [facility] IN .R.#: [id number] Admission: 11/23/17 Attend Phys: Torres Singh, Discharge: Date of : 47 Date of Service: 11/23/17 1123 Report #: [id number] The mitral valve is normal in structure. Trace mitral regurgitation. The tricuspid valve is normal in structure. Mild tricuspid regurgitation. The pulmonary valve is normal in structure. Trace pulmonic regurgitation. There is no pericardial effusion. <ELECTRONICALLY SIGNED> By: Fernando Gonzalez MD 11/23/171122 22 22 Fernando Gonzalez MD /INF
[~2017-11-22 21:56] MED LIST changes: +CIPRO500 MG PO; +DUONEB 2.5-0.5 M3 ML INH; +KLOR-CON 1010 MEQ PO; +TESSALON PERLE100 MG PO
[2017-11-22 21:59] VITALS: BP 97/62
[2017-11-22] MEDS ORDERED: VITAMIN D22000 UNIT PO (22:03)
[2017-11-22] MEDS ORDERED: CLARITIN10 MG PO (22:04)
[2017-11-22] MEDS ORDERED: SENSIPAR 30 MG30 MG PO (22:06)
[2017-11-22] MEDS ORDERED: CARVEDILOL3.125 MG PO (22:06)
[2017-11-23 00:14] LABS: ABSOLUTE NEUTROPHILS 8.5 thou/uL (1.4-8.2); BASOPHILS 0.4 % (0.0-2.0); EOSINOPHILS 0.9 % (0.0-3.0); HEMATOCRIT 39.9 % (42.0-52.0); HEMOGLOBIN 12.7 gm/dL (14.0-18.0); LYMPHOCYTES 3.9 % (24.0-44.0); MCH 29.1 pg (26.0-34.0); MCHC 31.9 g/dL (28.0-37.0); MCV 91.2 fL (80.0-100.0); MONOCYTES 7.7 % (1.0-8.0); PLATELET COUNT 184 thou/uL (150-400); POLYS 87.1 % (36.0-66.0); RBC 4.38 mil/uL (4.50-6.00); RDW 17.5 % (10.5-14.5); WBC 9.8 thou/uL (4.0-11.0)
[2017-11-23 00:28] LABS: CALCIUM 8.8 mg/dL (8.5-10.1); CREATININE 6.3 mg/dL (0.7-1.3); POTASSIUM 5.2 mmol/L (3.5-5.1)
[2017-11-23 00:36] LABS: ALBUMIN 3.3 g/dL (3.4-5.0); MAGNESIUM 2.6 mg/dL (1.8-2.4); TOTAL BILIRUBIN 0.7 mg/dL (<0.1-1.0); TOTAL PROTEIN 7.9 g/dL (6.4-8.2); TROPONIN-I 0.22 ng/mL (<0.06)
[2017-11-23 01:27] LABS: INR 1.3; PROTIME 13.4 Seconds (9.3-11.4)
[2017-11-23 02:14] VITALS: BP 122/69
[2017-11-23 07:36] VITALS: BP 112/59
[2017-11-23 07:55] LABS: BE(vivo) -0.2 mmol/L (-2 to +3); HCO3 28.4 mmol/L (22.0-26.0); PCO2 65.7 mmHg (35.0-45.0); PO2 112.5 mmHg (80.0-100.0); pH 7.253 (7.360-7.450); sO2 97.3 % (92.0-98.0)
[2017-11-23 09:39] LABS: BE(vivo) 0.4 mmol/L (-2 to +3); HCO3 28.9 mmol/L (22.0-26.0); PO2 88.1 mmHg (80.0-100.0); sO2 95.2 % (92.0-98.0)
[2017-11-23 09:41] LABS: PCO2 65.8 mmHg (35.0-45.0); pH 7.261 (7.360-7.450)
[2017-11-23 09:55] LABS: CHOLESTEROL 135 mg/dL (<200); HDL CHOLESTEROL 64 mg/dL (>40); LDL CHOLESTEROL 50 mg/dL (<100); TC:HDL 2.1 Ratio (Not establshd); TRIGLYCERIDE 105 mg/dL (<150); VLDL 21 mg/dL (<40)
[2017-11-23 14:49] LABS: HEMATOCRIT 36.3 % (42.0-52.0); HEMOGLOBIN 11.8 gm/dL (14.0-18.0); MCH 29.3 pg (26.0-34.0); MCHC 32.5 g/dL (28.0-37.0); RBC 4.03 mil/uL (4.50-6.00); RDW 17.8 % (10.5-14.5); WBC 6.6 thou/uL (4.0-11.0)
[2017-11-23 16:16] VITALS: BP 125/69
[2017-11-23 19:58] VITALS: BP 111/48
[2017-11-23 23:21] VITALS: BP 141/86
[2017-11-24 03:15] VITALS: BP 96/54
[2017-11-24 07:11] LABS: ABSOLUTE NEUTROPHILS 6.3 thou/uL (1.4-8.2); BASOPHILS 0.4 % (0.0-2.0); HEMATOCRIT 37.8 % (42.0-52.0); HEMOGLOBIN 12.1 gm/dL (14.0-18.0); LYMPHOCYTES 4.5 % (24.0-44.0); MCH 28.9 pg (26.0-34.0); MCV 90.3 fL (80.0-100.0); MONOCYTES 10.2 % (1.0-8.0); PLATELET COUNT 162 thou/uL (150-400); POLYS 82.9 % (36.0-66.0); RBC 4.19 mil/uL (4.50-6.00); RDW 17.7 % (10.5-14.5); WBC 7.6 thou/uL (4.0-11.0)
[2017-11-24 07:12] LABS: GLYCOHEMOGLOBIN (HGB A1C) 6.6 % (4.8-5.6)
[2017-11-24 07:24] LABS: CALCIUM 8.7 mg/dL (8.5-10.1); POTASSIUM 4.6 mmol/L (3.5-5.1); TROPONIN-I 0.17 ng/mL (<0.06)
[2017-11-24 07:25] LABS: CREATININE 4.7 mg/dL (0.7-1.3)
[2017-11-24 07:55] VITALS: BP 84/45
[2017-11-24] MEDS ORDERED: XARELTO15 MG PO (09:05)
[2017-11-24 11:45] VITALS: BP 116/37
[2017-11-24 15:16] VITALS: BP 119/40
[2017-11-24 19:00] VITALS: BP 89/58
[2017-11-24 23:30] VITALS: BP 109/65
[2017-11-25 03:32] VITALS: BP 91/51
[2017-11-25 06:05] LABS: HEMATOCRIT 38.7 % (42.0-52.0); HEMOGLOBIN 12.3 gm/dL (14.0-18.0); MCH 28.9 pg (26.0-34.0); MCHC 31.9 g/dL (28.0-37.0); MCV 90.5 fL (80.0-100.0); PLATELET COUNT 170 thou/uL (150-400); RBC 4.27 mil/uL (4.50-6.00); RDW 17.4 % (10.5-14.5); WBC 6.9 thou/uL (4.0-11.0)
[2017-11-25 06:13] LABS: CALCIUM 8.3 mg/dL (8.5-10.1)
[2017-11-25 07:48] VITALS: BP 90/58
[2017-11-25 08:01] LABS: ABSOLUTE NEUTROPHILS 4.6 thou/uL (1.4-8.2)
[2017-11-25 08:03] LABS: ANISOCYTOSIS SLIGHT; LARGE PLATELETS FEW; POIKILOCYTOSIS SLIGHT
[2017-11-25 11:50] VITALS: BP 106/69
[2017-11-25 15:45] VITALS: BP 105/68
[2017-11-25 19:05] VITALS: BP 104/47
[2017-11-26 04:23] VITALS: BP 106/56
[2017-11-26 05:58] LABS: HEMATOCRIT 38.4 % (42.0-52.0); HEMOGLOBIN 12.2 gm/dL (14.0-18.0); MCH 28.8 pg (26.0-34.0); MCHC 31.7 g/dL (28.0-37.0); MCV 90.8 fL (80.0-100.0); RBC 4.23 mil/uL (4.50-6.00); RDW 17.6 % (10.5-14.5); WBC 6.8 thou/uL (4.0-11.0)
[2017-11-26 07:55] VITALS: BP 97/36
[2017-11-26] MEDS ORDERED: XARELTO15 MG PO (09:08)
== END 2017-11-26 14:14 | DRG 280 ==
LOC: ER 21:56 → 3W 11-23 00:55 → EROBS 11-23 00:55 → 3W 11-23 02:14
PROVIDERS: Emergency Medicine; Family Medicine; Nurse Practitioner Acute Care
PROC: 5A1D70Z Performance of Urinary Filtration, Intermittent, Less than 6 Hours Per Day (ICD-10-PCS; principal; 2017-11-23)
PROC: 5A09357 Assistance with Respiratory Ventilation, Less than 24 Consecutive Hours, Continuous Positive Airway Pressure (ICD-10-PCS; principal; 2017-11-23)
PROC: 5A09357 Assistance with Respiratory Ventilation, Less than 24 Consecutive Hours, Continuous Positive Airway Pressure (ICD-10-PCS; 2017-11-24)
PROC: 5A09357 Assistance with Respiratory Ventilation, Less than 24 Consecutive Hours, Continuous Positive Airway Pressure (ICD-10-PCS; 2017-11-25)
PROC: 5A1D70Z Performance of Urinary Filtration, Intermittent, Less than 6 Hours Per Day (ICD-10-PCS; 2017-11-25)
PROC: 5A09357 Assistance with Respiratory Ventilation, Less than 24 Consecutive Hours, Continuous Positive Airway Pressure (ICD-10-PCS; 2017-11-26)
DX: I21.4 Non-ST elevation (NSTEMI) myocardial infarction (principal); J69.0 Pneumonitis due to inhalation of food and vomit; N18.6 End stage renal disease; J96.22 Acute and chronic respiratory failure with hypercapnia; J96.21 Acute and chronic respiratory failure with hypoxia; G93.40 Encephalopathy, unspecified; G82.20 Paraplegia, unspecified; I48.92 Unspecified atrial flutter; E87.1 Hypo-osmolality and hyponatremia; I12.0 Hypertensive chronic kidney disease with stage 5 chronic kidney disease or end stage renal disease; E78.00 Pure hypercholesterolemia, unspecified; E11.51 Type 2 diabetes mellitus with diabetic peripheral angiopathy without gangrene; G47.33 Obstructive sleep apnea (adult) (pediatric); J44.9 Chronic obstructive pulmonary disease, unspecified; Z87.891 Personal history of nicotine dependence; E87.5 Hyperkalemia; I49.5 Sick sinus syndrome; E11.22 Type 2 diabetes mellitus with diabetic chronic kidney disease; I48.91 Unspecified atrial fibrillation; E66.01 Morbid (severe) obesity due to excess calories; I48.2 Chronic atrial fibrillation; I95.9 Hypotension, unspecified; M48.061 Spinal stenosis, lumbar region without neurogenic claudication; Z79.82 Long term (current) use of aspirin; Z90.49 Acquired absence of other specified parts of digestive tract; Z95.0 Presence of cardiac pacemaker; Z88.6 Allergy status to analgesic agent; Z88.8 Allergy status to other drugs, medicaments and biological substances; Z83.3 Family history of diabetes mellitus; Z82.49 Family history of ischemic heart disease and other diseases of the circulatory system; Z79.01 Long term (current) use of anticoagulants; Z89.511 Acquired absence of right leg below knee; Z68.34 Body mass index [BMI] 34.0-34.9, adult; Z79.899 Other long term (current) drug therapy
CPT/HCPCS: 10779; 32100

== ENCOUNTER 2018-02-20 09:55 | Emergency (ER) | payer OTHER ==
[~2018-02-20] VITALS: Ht 180.3 cm; Wt 116.1 kg
[~2018-02-20 09:55] MED LIST changes: +CARVEDILOL3.125 MG PO; +CLARITIN10 MG PO; +VITAMIN D22000 UNIT PO; +XARELTO15 MG PO
[2018-02-20 11:28] LABS: ABSOLUTE NEUTROPHILS 9.5 thou/uL (1.4-8.2); BASOPHILS 0.3 % (0.0-2.0); EOSINOPHILS 2.1 % (0.0-3.0); HEMATOCRIT 38.5 % (42.0-52.0); HEMOGLOBIN 12.6 gm/dL (14.0-18.0); LYMPHOCYTES 8.2 % (24.0-44.0); MCH 29.3 pg (26.0-34.0); MCHC 32.7 g/dL (28.0-37.0); MCV 89.6 fL (80.0-100.0); MONOCYTES 8.7 % (1.0-8.0); PLATELET COUNT 181 thou/uL (150-400); POLYS 80.7 % (36.0-66.0); RDW 19.1 % (10.5-14.5); WBC 11.7 thou/uL (4.0-11.0)
[2018-02-20 11:35] LABS: CALCIUM 9.3 mg/dL (8.5-10.1); CREATININE 4.3 mg/dL (0.7-1.3); POTASSIUM 4.9 mmol/L (3.5-5.1)
[2018-02-20 11:44] LABS: TOTAL BILIRUBIN 0.7 mg/dL (<0.1-1.0); TOTAL PROTEIN 8.7 g/dL (6.4-8.2); TROPONIN-I 0.07 ng/mL (<0.06)
[2018-02-20 12:51] LABS: ANISOCYTOSIS 2+
== END 2018-02-20 14:44 ==
LOC: ER 09:55
PROVIDERS: Physician Assistant
DX: I95.9 Hypotension, unspecified (principal); I12.0 Hypertensive chronic kidney disease with stage 5 chronic kidney disease or end stage renal disease; E11.22 Type 2 diabetes mellitus with diabetic chronic kidney disease; N18.6 End stage renal disease; E87.1 Hypo-osmolality and hyponatremia; I73.9 Peripheral vascular disease, unspecified; J44.9 Chronic obstructive pulmonary disease, unspecified; E78.00 Pure hypercholesterolemia, unspecified; M48.00 Spinal stenosis, site unspecified; Z88.8 Allergy status to other drugs, medicaments and biological substances; Z88.4 Allergy status to anesthetic agent; Z88.5 Allergy status to narcotic agent; Z99.2 Dependence on renal dialysis; Z90.49 Acquired absence of other specified parts of digestive tract

== ENCOUNTER 2018-02-25 01:00 | Inpatient (IN) | payer OTHER ==
[~2018-02-25] VITALS: Ht 167.6 cm; Wt 111.5 kg
--- NOTE | ~2018-02-25 | HC ---
[facility] [place] [address] CONSULTATION Name: DONTE GAN Room #: 214-P [facility] IN M.R.#: [id number] Admission: 02/25/18 Attend Phys: Clement Hodge MD Discharge: Date of : 47 Report #: [id number] THIS REPORT FOR: //name// CC: Clement Olivarezrosa mariag DATE OF SERVICE: 02/25/2018 ATTENDING PHYSICIAN: Dr. Christensen. REASON FOR CONSULTATION: End-stage renal disease. HISTORY OF PRESENT ILLNESS: The patient is known to our service from previous admissions here. He presents at this time with nausea, vomiting, abdominal distention and abdominal discomfort. NG tube is placed and has copious return of somewhat maroon-colored fluid. He is feeling better. PAST MEDICAL HISTORY: Longstanding end-stage renal disease, on dialysis, dialyzed yesterday, history of diabetes. He has severe spinal stenosis with weakness of the lower extremities. He has got a previous history of sick sinus syndrome with pacemaker insertion, right arm AV fistula, history of COPD, AFib, atrial flutter and peripheral vascular disease, status post right BKA. FAMILY HISTORY: Positive for diabetes. SOCIAL HISTORY: He is a former smoker, but he quit and lives in a nursing facility. REVIEW OF SYSTEMS: GENERAL: Otherwise, he has been feeling okay. EYES: His vision is reasonably good. ENT: Hearing okay, swallows okay normally. ENDOCRINE: Positive for the diabetes. RESPIRATORY: Somewhat easily winded with any exertion, but he really does not get around much. CARDIAC: Denying current chest pain or angina. GASTROINTESTINAL: Nausea and vomiting as mentioned. GENITOURINARY: Making very little urine. NEUROLOGIC: Some evidence of peripheral neuropathy. HOME MEDICATIONS: Include Elavil 25 mg at bedtime, aspirin 81 mg a day, Coreg 3.125 mg b.i.d., Sensipar 30 mg at bedtime, vitamin D, melatonin, metoclopramide 5 mg before meals and at bedtime, midodrine 5 mg before dialysis, omeprazole 40 mg daily, Xarelto 15 mg daily, Renvela 2 with meals t.i.d., Januvia 25 mg daily. PHYSICAL EXAMINATION: [facility] [address] [place] [address] CONSULTATION Name: DONTE GAN Room #: 214-P [facility] IN ..#: [id number] Admission: 02/25/18 Attend Phys: Clement Hodge MD Discharge: Date of : 47 Report #: [id number] GENERAL: This is a somewhat ill-appearing gentleman, distended abdomen. SKIN: Otherwise, unremarkable. SKELETAL: Right BKA. HEENT: Extraocular movements appear to be full with vision intact. Mucous membranes dry. NG tube in place. NECK: Supple. CHEST: Diminished breath sounds at the bases. HEART: Distant. ABDOMEN: Distended and somewhat tender. EXTREMITIES: Show no edema. LABORATORY DATA: White count 10.1, hemoglobin is 12. Sodium 131, potassium 3.7, chloride 93, bicarbonate 29. ASSESSMENT: 1. End-stage renal disease, for dialysis. We will order dialysis for tomorrow. 2. Nausea and vomiting. CT scan findings revealed multiple dilated fluid-filled small bowel loops consistent with bowel obstruction. 3. Severe spinal stenosis with paraplegia. 4. Longstanding diabetes mellitus, status post right below knee amputation. 5. Sick sinus syndrome with pacemaker in place. By: [id number] Osmany العلي MD /nt
[2018-02-25 01:37] LABS: ABSOLUTE NEUTROPHILS 8.1 thou/uL (1.4-8.2); BASOPHILS 0.3 % (0.0-2.0); EOSINOPHILS 2.5 % (0.0-3.0); HEMATOCRIT 36.1 % (42.0-52.0); LYMPHOCYTES 7.5 % (24.0-44.0); MCH 29.3 pg (26.0-34.0); MCHC 33.2 g/dL (28.0-37.0); MCV 88.2 fL (80.0-100.0); MONOCYTES 10.1 % (1.0-8.0); PLATELET COUNT 200 thou/uL (150-400); POLYS 79.6 % (36.0-66.0); RDW 18.4 % (10.5-14.5); WBC 10.1 thou/uL (4.0-11.0)
[2018-02-25 01:44] VITALS: BP 95/42
[2018-02-25 01:45] LABS: CALCIUM 9.3 mg/dL (8.5-10.1); CREATININE 3.9 mg/dL (0.7-1.3); POTASSIUM 3.7 mmol/L (3.5-5.1)
[2018-02-25 01:49] LABS: TOTAL BILIRUBIN 0.7 mg/dL (<0.1-1.0); TOTAL PROTEIN 8.7 g/dL (6.4-8.2)
[2018-02-25] MEDS ORDERED: OMEPRAZOLE40 MG PO (02:42)
[2018-02-25] MEDS ORDERED: MIDODRINE HCL 55 M1 PO (02:47)
[2018-02-25] MEDS ORDERED: PERCOCET 10-321 EACH PO (02:48)
[2018-02-25] MEDS ORDERED: CLARITIN10 MG PO (02:49)
[2018-02-25 04:27] VITALS: BP 112/29
[2018-02-25 07:48] VITALS: BP 128/67
[2018-02-25 12:06] VITALS: BP 91/52
[2018-02-25 15:19] VITALS: BP 126/62
[2018-02-25 20:43] VITALS: BP 128/63
[2018-02-26 00:54] VITALS: BP 109/35
[2018-02-26 04:01] VITALS: BP 121/62
[2018-02-26 05:16] LABS: ALBUMIN 2.9 g/dL (3.4-5.0); CALCIUM 8.9 mg/dL (8.5-10.1); CREATININE 4.8 mg/dL (0.7-1.3); PHOSPHORUS 4.6 mg/dL (2.5-4.9); POTASSIUM 3.5 mmol/L (3.5-5.1)
[2018-02-26 07:26] VITALS: BP 116/64
[2018-02-26 11:50] VITALS: BP 117/71
[2018-02-26 20:32] VITALS: BP 80/60
[2018-02-27 04:34] VITALS: BP 103/53
[2018-02-27 05:24] LABS: ALBUMIN 2.6 g/dL (3.4-5.0); CALCIUM 8.6 mg/dL (8.5-10.1); PHOSPHORUS 3.1 mg/dL (2.5-4.9); POTASSIUM 3.7 mmol/L (3.5-5.1)
[2018-02-27 05:26] LABS: CREATININE 3.1 mg/dL (0.7-1.3)
[2018-02-27 09:48] VITALS: BP 114/55
[2018-02-27 12:39] VITALS: BP 113/60
[2018-02-28 12:18] VITALS: BP 119/62
[2018-02-28 17:12] VITALS: BP 105/49
[2018-02-28 19:19] VITALS: BP 119/28
[2018-03-01 05:07] VITALS: BP 131/39
[2018-03-01 07:35] VITALS: BP 121/66
[2018-03-01 11:32] VITALS: BP 117/60
[2018-03-01 16:10] VITALS: BP 134/60
[2018-03-01 19:25] VITALS: BP 115/62
[2018-03-02 04:30] VITALS: BP 133/69
[2018-03-02 07:45] VITALS: BP 124/68
[2018-03-02 11:17] VITALS: BP 124/81
== END 2018-03-02 16:22 | DRG 388 ==
LOC: ER 01:00 → 2N 03:00 → EROBS 03:00 → 2N 04:00
PROVIDERS: Emergency Medicine; Internal Medicine Nephrology
PROC: 5A09357 Assistance with Respiratory Ventilation, Less than 24 Consecutive Hours, Continuous Positive Airway Pressure (ICD-10-PCS; principal; 2018-02-27)
PROC: 5A09357 Assistance with Respiratory Ventilation, Less than 24 Consecutive Hours, Continuous Positive Airway Pressure (ICD-10-PCS; 2018-02-28)
PROC: 5A1D90Z Performance of Urinary Filtration, Continuous, Greater than 18 hours Per Day (ICD-10-PCS; 2018-03-01)
PROC: 5A09357 Assistance with Respiratory Ventilation, Less than 24 Consecutive Hours, Continuous Positive Airway Pressure (ICD-10-PCS; 2018-03-01)
PROC: 5A1D90Z Performance of Urinary Filtration, Continuous, Greater than 18 hours Per Day (ICD-10-PCS; 2018-03-02)
DX: K56.600 Partial intestinal obstruction, unspecified as to cause (principal); N18.6 End stage renal disease; G93.40 Encephalopathy, unspecified; I48.92 Unspecified atrial flutter; I13.2 Hypertensive heart and chronic kidney disease with heart failure and with stage 5 chronic kidney disease, or end stage renal disease; I50.32 Chronic diastolic (congestive) heart failure; E11.51 Type 2 diabetes mellitus with diabetic peripheral angiopathy without gangrene; E11.22 Type 2 diabetes mellitus with diabetic chronic kidney disease; J44.9 Chronic obstructive pulmonary disease, unspecified; E78.00 Pure hypercholesterolemia, unspecified; I95.9 Hypotension, unspecified; I48.2 Chronic atrial fibrillation; I49.5 Sick sinus syndrome; G47.33 Obstructive sleep apnea (adult) (pediatric); K59.00 Constipation, unspecified; M48.00 Spinal stenosis, site unspecified; Z87.891 Personal history of nicotine dependence; Z99.2 Dependence on renal dialysis; Z90.49 Acquired absence of other specified parts of digestive tract; Z95.0 Presence of cardiac pacemaker; Z89.511 Acquired absence of right leg below knee; Z79.01 Long term (current) use of anticoagulants; Z79.82 Long term (current) use of aspirin; Z79.899 Other long term (current) drug therapy; Z88.5 Allergy status to narcotic agent; Z88.8 Allergy status to other drugs, medicaments and biological substances; Z83.3 Family history of diabetes mellitus; Z82.49 Family history of ischemic heart disease and other diseases of the circulatory system
CPT/HCPCS: 10081; 32100

== ENCOUNTER 2018-04-05 09:53 | Inpatient (IN) | payer OTHER ==
[~2018-04-05] VITALS: Ht 180.3 cm; Wt 107.8 kg
[2018-04-05] VITALS (14 sets, daily range): BP systolic 82–121; BP diastolic 49–86
--- NOTE | ~2018-04-05 | HC ---
[facility] [place] [address] CONSULTATION Name: DONTE GAN Room #: 463-P AD[facility] IN M.R.#: [id number] Admission: 04/05/18 Attend Phys: Dirk Winn MD Discharge: Date of : 47 Report #: [id number] THIS REPORT FOR: //name// CC: Rachel Parr Dirk Winn DATE OF SERVICE: 04/07/2018 HISTORY OF PRESENT ILLNESS: The patient is seen in his room in the Intensive Care Unit with the wound care team. He is mostly somnolent, coughing occasionally. He does not open his eyes or attempt to answer any questions. The patient was admitted after having developed fever and hypotension from dialysis center. He cannot provide much information about himself. He does have ulceration to his left hip and left knee area and I have been asked to see him in this regard. PAST MEDICAL HISTORY: Positive for history of diabetes; hypertension; elevated cholesterol; end-stage renal disease, requiring dialysis; previous cholecystectomy; sick sinus syndrome, requiring pacemaker; previous right below-knee amputation in 03/2015, atrial flutter and chronic respiratory failure. FAMILY HISTORY: Positive for heart disease and diabetes per his records. SOCIAL HISTORY: Negative for known alcohol or tobacco use. REVIEW OF SYSTEMS: Not obtainable due to the patient's condition and the inability to answer questions. MEDICATIONS: Include Xarelto, aspirin, Mucinex, MiraLax, Januvia, metoclopramide, Elavil, Renal caps, Colace, lactulose, Renvela, ergocalciferol, Sensipar, Coreg, ProAmatine, Percocet and Claritin. PHYSICAL EXAMINATION: VITAL SIGNS: At this time include temperature 36.6, pulse rate 60, respiratory rate of 20 and blood pressure of 83/41. GENERAL: This is a chronically ill-appearing male patient, who appears to be in no obvious distress. HEENT: Head normocephalic. NECK: Supple. LUNGS: Diminished and coarse. HEART: Irregular without obvious murmur. ABDOMEN: Slightly distended. EXTREMITIES: Demonstrate right previous BKA that appears to be intact. He has what appears to be a traumatic wound to his left knee, with some eschar which is easily peeled away, revealing some healthy granulation tissue. He has a very [facility] [address] [place] [address] CONSULTATION Name: DONTE GAN Room #: 463-[facility] IN [facility].#: [id number] Admission: 04/05/18 Attend Phys: Dirk Winn MD Discharge: Date of : 47 Report #: [id number] small unstageable pressure ulcer to his left hip area, covered with dry stable eschar at this time. LABORATORY DATA: White blood cell count 12.2 with hemoglobin 8.8, hematocrit of 26.8. Sodium 134, potassium 3.5, BUN 44 and creatinine 4.4. Albumin is 2.1. Prealbumin is low at 10.0. CLINICAL IMPRESSION: 1. Traumatic wound to the left knee. 2. Unstageable pressure ulcer of the left hip. 3. End-stage renal disease, requiring dialysis. 4. Severe protein-calorie malnutrition. 5. Diabetes mellitus. RECOMMENDATIONS: At this point in time, we will recommend a bordered foam to both the left knee and left hip, to be changed on a Thursday, Thursday and Thursday basis. He will need a low air loss mattress, q. 2-hour turning and positioning and will need Prevalon boots or PRAFO boot to his left lower extremity. I do appreciate being asked to see him in consultation. <ELECTRONICALLY SIGNED> By: Balaji Cummings MD 04/08/18 1402 0033 Balaji Cummings MD /nt
--- NOTE | ~2018-04-05 | HC ---
[facility] [place] [address] CONSULTATION Name: DONTE GAN Room #: 240-P [facility] IN M.R.#: [id number] Admission: 04/05/18 Attend Phys: Dirk Winn MD Discharge: Date of : 47 Report #: [id number] THIS REPORT FOR: //name// CC: Nasim Olivarezkrystal DATE OF SERVICE: 04/05/2018 REASON FOR CONSULTATION: I was asked to evaluate concerning sepsis. HISTORY OF PRESENT ILLNESS: The patient transfers from [facility] where he was seen in the Emergency Room with fever up to 101.3 degrees, hypotension. He was transferred from the dialysis center where he was found to be hypotensive and febrile. He did not undergo hemodialysis prior to his transfer. At [facility], he was given Levaquin, IV fluids. Transferred to now the Intensive Care Unit. The patient was lethargic. Denies any rash or new decubiti. He has had no travel. He has been residing at a long term. He was recently admitted one month ago to [facility] with partial small-bowel obstruction, which resolved. Denies any headache, change in vision, oral lesions. He has had no rash. Denies any adenopathy. He has had intermittent cough with light-colored sputum production. No hemoptysis. No nausea or vomiting. He has had some loose stool. Minimal urine output. He dialyzes through a right upper extremity AV fistula. Denies any chest pain, palpitations. He has been mildly dyspneic and now is on oxygen per nasal cannula. No seizures witnessed or evidence of stroke. REVIEW OF SYSTEMS: 10-point review of systems otherwise negative. ALLERGIES: CLONIDINE, DILTIAZEM, FENTANYL, METOPROLOL, MORPHINE. MEDICATIONS: Xarelto, aspirin, Mucinex, MiraLax, Januvia, metoclopramide, renal caps, Elavil, Colace, lactulose, Renvela, vitamin D, Sensipar, Coreg, omeprazole, midodrine, Percocet, Claritin. PAST MEDICAL HISTORY: Diabetes, hypertension, hyperlipidemia, end-stage renal disease, right AV fistula for dialysis, previous knee surgery, right below knee amputation, cholecystectomy, multiple low back surgeries, permanent pacemaker for sick sinus syndrome, atrial flutter, paraplegia from a spinal stenosis, COPD. FAMILY HISTORY: Heart disease, diabetes. SOCIAL HISTORY: Past smoker, no significant alcohol intake. PHYSICAL EXAMINATION: VITAL SIGNS: The patient was lethargic. [facility] [address] [place] [address] CONSULTATION Name: DONTE GAN Room #: 240-P [facility] IN .R.#: [id number] Admission: 04/05/18 Attend Phys: Dirk Winn MD Discharge: Date of : 47 Report #: [id number] GENERAL: He was responsive and was oriented. HEENT: Pupils equal, round and reactive to light. No scleral icterus or conjunctivitis. Mouth has most of his teeth missing. No mucositis or ulceration. NECK: Supple. No thyromegaly or mass. No peripheral adenopathy palpable. Moderately obese. LUNGS: Coarse breath sounds mostly on the right. No consolidation or rub. HEART: Regular without murmur, gallop or rub. ABDOMEN: Soft, nontender, no hepatosplenomegaly or mass. GENITOURINARY: External genitalia unremarkable without ulceration or mass. Perirenal skin intact. No decubiti. EXTREMITIES: Right below the knee amputation site was unremarkable. Left lower leg had 1+ edema. He had no spinal percussion tenderness. Left leg weakness. PSYCHIATRIC: Mood without anxiety. His general affect was lethargic. LABORATORY STUDIES: Pending. Chest x-ray, CT scan of the head pending. IMPRESSION: 1. Sepsis, suspect right lobe pneumonia considering cough and adventitial sounds in the right chest. Other consideration would be occult bacteremia. The patient had recent partial small-bowel obstruction and will need to follow for any further abdominal symptoms. Currently, no evidence of gastrointestinal bleeding or abdominal pain. The patient does have hardware in his back and reports back discomfort, although examination was relatively unremarkable in this area. 2. End-stage renal disease. 3. Diabetes. 4. Spinal stenosis. RECOMMENDATION: 1. We will continue broad antibiotic coverage for healthcare-associated organisms. The patient does have a history of MRSA. 2. Obtain sputum culture, blood cultures. 3: IV fluids and vasopressors if necessary to maintain adequate perfusion. Nephrology to decide on timing of dialysis. <ELECTRONICALLY SIGNED> By: Wood Lloyd MD 04/06/18 1749 [id number] [id number] Wood Lloyd MD /nt
--- NOTE | ~2018-04-05 | HC ---
[facility] [place] [address] CONSULTATION Name: DONTE GAN Room #: 463-P [facility] IN M.R.#: [id number] Admission: 04/05/18 Attend Phys: Dirk Winn MD Discharge: 04/10/18 Date of : 46 Report #: [id number] THIS REPORT FOR: //name// CC: Rachel Sherkrystal Dirk Winn REASON FOR CONSULTATION: End-stage renal disease. HISTORY OF PRESENT ILLNESS: A 72-year-old with past medical history of end-stage renal disease, maintained on dialysis every Thursday, Thursday and Thursday. He is known to have peripheral vascular disease. He has had repeated hospitalizations in our facility in the past. He presented from his dialysis unit with fever and hypotension. The patient denies those symptoms; however, it was reported in his dialysis unit and in the [facility] ER that he had a temperature of 101.3. He was admitted to the Intensive Care Unit because of his hypotensive. ID was consulted. He did have an infiltrate on his chest x-ray and is being appropriately treated as pneumonitis given his leukocytosis and the chest x-ray finding. I am being consulted to manage his end-stage renal disease. PAST MEDICAL HISTORY: 1. End-stage renal disease, maintained on hemodialysis. 2. Hypertension. 3. Hyperlipidemia. 4. Diabetes mellitus. 5. Right arm AV fistula. 6. Cholecystectomy. 7. Sick sinus syndrome plus-pacemaker. 8. Peripheral vascular disease, status post right BKA. 9. Atrial flutter. 10. Spinal stenosis. 11. Chronic respiratory failure related to COPD. FAMILY HISTORY: Significant for diabetes mellitus and heart disease. SOCIAL HISTORY: He denies drug or alcohol abuse. MEDICATIONS: 1. Aspirin. 2. Folic acid. 3. Lactulose. 4. Sevelamer. 5. Cinacalcet. 6. Carvedilol. 7. Midodrine. 8. Omeprazole. [facility] [address] [place] [address] CONSULTATION Name: DONTE GAN Room #: 463-P [facility] IN [facility].#: [id number] Admission: 04/05/18 Attend Phys: Dirk Winn MD Discharge: 04/10/18 Date of : 46 Report #: [id number] REVIEW OF SYSTEMS: The patient currently has an acute mental status issue and is not able to provide me with the details of his review of system. PHYSICAL EXAMINATION: GENERAL: The patient is disoriented. VITAL SIGNS: Blood pressure most recently is 90/59. HEAD AND NECK: No jugular venous distention. CHEST: Decreased air entry bilaterally. CARDIOVASCULAR: No rub detected. ABDOMEN: Soft, nontender. LOWER EXTREMITIES: Amputee. UPPER EXTREMITIES: Right AV fistula. LABORATORY DATA: Reviewed. Hemoglobin 9.1. Sodium 130, BUN is 112, creatinine 7.7, albumin is 2.1. Blood cultures are pending. Chest x-ray reviewed. ASSESSMENT, IMPRESSION, PLAN: 1. End-stage renal disease. 2. Pneumonitis. 3. Peripheral vascular disease. 4. Diabetes mellitus. 5. ____. 6. Chronic hypertension. 7. The patient is being appropriately treated for his pneumonitis, pending cultures. 8. Arrange for the patient to have his dialysis today. 9. Continue with the midodrine for his chronic hypertension. 10. Continue other care aspects related to his other comorbid conditions. <ELECTRONICALLY SIGNED> By: Ceasar Mendez MD 04/13/18 0741 0849 7 Ceasar Mendez MD /nt
[~2018-04-05 09:53] MED LIST changes: +MIDODRINE HCL 55 M1 PO; +PERCOCET 10-321 EACH PO
[2018-04-05 15:55] LABS: HEMATOCRIT 30.1 % (42.0-52.0); MCH 29.6 pg (26.0-34.0); MCHC 33.2 g/dL (28.0-37.0); MCV 89.3 fL (80.0-100.0); RBC 3.36 mil/uL (4.50-6.00); WBC 21.2 thou/uL (4.0-11.0)
[2018-04-05 16:04] LABS: CALCIUM 8.7 mg/dL (8.5-10.1); CREATININE 7.3 mg/dL (0.7-1.3); POTASSIUM 4.8 mmol/L (3.5-5.1)
[2018-04-05 16:08] LABS: ALBUMIN 2.4 g/dL (3.4-5.0); PHOSPHORUS 6.5 mg/dL (2.5-4.9)
[2018-04-05 16:16] LABS: INR 1.6; PROTIME 15.3 Seconds (9.3-11.4)
[2018-04-05 17:11] LABS: TSH 0.459 uIU/mL (0.358-3.740)
[2018-04-05 17:40] LABS: FOLIC ACID 39.6 ng/mL (8.6-58.9)
[2018-04-05 17:45] LABS: BE(vivo) -3.1 mmol/L (-2 to +3); HCO3 22.6 mmol/L (22.0-26.0); PCO2 42.9 mmHg (35.0-45.0); pH 7.339 (7.360-7.450); sO2 94.1 % (92.0-98.0)
[2018-04-06] VITALS (21 sets, daily range): BP systolic 80–105; BP diastolic 47–69
[2018-04-06 05:13] LABS: HEMATOCRIT 27.2 % (42.0-52.0); HEMOGLOBIN 9.1 gm/dL (14.0-18.0); MCHC 33.5 g/dL (28.0-37.0); MCV 89.4 fL (80.0-100.0); RBC 3.04 mil/uL (4.50-6.00); WBC 16.2 thou/uL (4.0-11.0)
[2018-04-06 05:34] LABS: ALBUMIN 2.1 g/dL (3.4-5.0); CALCIUM 8.3 mg/dL (8.5-10.1); CREATININE 7.7 mg/dL (0.7-1.3); PHOSPHORUS 6.8 mg/dL (2.5-4.9)
[2018-04-07] VITALS (15 sets, daily range): BP systolic 74–180; BP diastolic 41–96
[2018-04-07 05:48] LABS: CALCIUM 7.9 mg/dL (8.5-10.1)
[2018-04-07 05:49] LABS: ABSOLUTE NEUTROPHILS 10.5 thou/uL (1.4-8.2); BASOPHILS 0.1 % (0.0-2.0); CREATININE 4.4 mg/dL (0.7-1.3); EOSINOPHILS 0.8 % (0.0-3.0); HEMATOCRIT 26.8 % (42.0-52.0); HEMOGLOBIN 8.8 gm/dL (14.0-18.0); LYMPHOCYTES 3.8 % (24.0-44.0); MCH 29.2 pg (26.0-34.0); MCHC 32.7 g/dL (28.0-37.0); MCV 89.2 fL (80.0-100.0); MONOCYTES 9.4 % (1.0-8.0); PLATELET COUNT 193 thou/uL (150-400); POLYS 85.9 % (36.0-66.0); POTASSIUM 3.5 mmol/L (3.5-5.1); RDW 17.3 % (10.5-14.5); WBC 12.2 thou/uL (4.0-11.0)
[2018-04-07 10:11] LABS: HEP B SURFACE Ab(ANTI-HBS Reactive (()); HEPATITIS B SURFACE AG Negative (Negative)
[2018-04-08 02:26] VITALS: BP 102/85
[2018-04-08 04:04] LABS: HEMATOCRIT 27.9 % (42.0-52.0); HEMOGLOBIN 9.2 gm/dL (14.0-18.0); MCH 29.7 pg (26.0-34.0); MCHC 32.8 g/dL (28.0-37.0); MCV 90.3 fL (80.0-100.0); RBC 3.09 mil/uL (4.50-6.00); WBC 12.7 thou/uL (4.0-11.0)
[2018-04-08 04:06] LABS: CALCIUM 8.2 mg/dL (8.5-10.1); CREATININE 3.6 mg/dL (0.7-1.3); POTASSIUM 3.1 mmol/L (3.5-5.1)
[2018-04-08 08:50] VITALS: BP 94/48
[2018-04-08 15:28] VITALS: BP 84/39
[2018-04-08 19:38] VITALS: BP 71/22
[2018-04-08 21:00] VITALS: BP 79/38
[2018-04-09 04:12] VITALS: BP 89/38
[2018-04-09 08:19] VITALS: BP 87/43
[2018-04-09 13:19] VITALS: BP 122/57
[2018-04-09 13:28] LABS: HEMATOCRIT 30.6 % (42.0-52.0); HEMOGLOBIN 9.9 gm/dL (14.0-18.0); MCH 29.2 pg (26.0-34.0); MCHC 32.5 g/dL (28.0-37.0); MCV 89.9 fL (80.0-100.0); RBC 3.4 mil/uL (4.50-6.00); RDW 18.2 % (10.5-14.5); WBC 12.6 thou/uL (4.0-11.0)
[2018-04-09 13:34] LABS: CALCIUM 8.4 mg/dL (8.5-10.1); POTASSIUM 3.1 mmol/L (3.5-5.1)
[2018-04-09 13:36] LABS: CREATININE 2.4 mg/dL (0.7-1.3)
[2018-04-09 16:00] VITALS: BP 98/51
[2018-04-09 19:59] VITALS: BP 108/69
[2018-04-10 03:25] VITALS: BP 126/62
[2018-04-10 04:40] LABS: HEMATOCRIT 30.2 % (42.0-52.0); HEMOGLOBIN 9.7 gm/dL (14.0-18.0); MCH 29.5 pg (26.0-34.0); MCHC 32.1 g/dL (28.0-37.0); RBC 3.29 mil/uL (4.50-6.00); RDW 18.3 % (10.5-14.5)
[2018-04-10 04:53] LABS: CALCIUM 8.7 mg/dL (8.5-10.1); CREATININE 3.2 mg/dL (0.7-1.3); POTASSIUM 3.5 mmol/L (3.5-5.1)
[2018-04-10 08:07] VITALS: BP 128/58
[2018-04-10 08:50] VITALS: BP 128/58
[2018-04-10] MEDS ORDERED: AUGMENTIN 500-1 EACH PO (12:42)
[2018-04-10 16:05] VITALS: BP 122/64
== END 2018-04-10 17:45 | DRG 871 ==
LOC: ICU 09:53 → 4W 04-07 18:19
PROVIDERS: Hospitalist; Student in an Organized Health Care Education/Training Program
PROC: B544ZZA Ultrasonography of Left Jugular Veins, Guidance (ICD-10-PCS; principal; 2018-04-05)
PROC: 05HN33Z Insertion of Infusion Device into Left Internal Jugular Vein, Percutaneous Approach (ICD-10-PCS; principal; 2018-04-05)
PROC: 5A1D70Z Performance of Urinary Filtration, Intermittent, Less than 6 Hours Per Day (ICD-10-PCS; 2018-04-06)
PROC: 5A1D70Z Performance of Urinary Filtration, Intermittent, Less than 6 Hours Per Day (ICD-10-PCS; 2018-04-07)
PROC: 5A1D70Z Performance of Urinary Filtration, Intermittent, Less than 6 Hours Per Day (ICD-10-PCS; 2018-04-09)
DX: A41.9 Sepsis, unspecified organism (principal); N18.6 End stage renal disease; E43 Unspecified severe protein-calorie malnutrition; R65.21 Severe sepsis with septic shock; J69.0 Pneumonitis due to inhalation of food and vomit; I12.0 Hypertensive chronic kidney disease with stage 5 chronic kidney disease or end stage renal disease; I48.92 Unspecified atrial flutter; J96.10 Chronic respiratory failure, unspecified whether with hypoxia or hypercapnia; I49.5 Sick sinus syndrome; J44.9 Chronic obstructive pulmonary disease, unspecified; E11.22 Type 2 diabetes mellitus with diabetic chronic kidney disease; E11.51 Type 2 diabetes mellitus with diabetic peripheral angiopathy without gangrene; M48.00 Spinal stenosis, site unspecified; E78.5 Hyperlipidemia, unspecified; M62.84 Sarcopenia; L89.220 Pressure ulcer of left hip, unstageable; E78.00 Pure hypercholesterolemia, unspecified; D63.8 Anemia in other chronic diseases classified elsewhere; E87.6 Hypokalemia; S89.92XA Unspecified injury of left lower leg, initial encounter; X58.XXXA Exposure to other specified factors, initial encounter; Y93.89 Activity, other specified; Y92.89 Other specified places as the place of occurrence of the external cause; Y99.8 Other external cause status; Z68.33 Body mass index [BMI] 33.0-33.9, adult; Z89.511 Acquired absence of right leg below knee; Z87.891 Personal history of nicotine dependence; Z99.2 Dependence on renal dialysis; Z91.15 Patient's noncompliance with renal dialysis; Z86.14 Personal history of Methicillin resistant Staphylococcus aureus infection; Z90.49 Acquired absence of other specified parts of digestive tract; Z95.0 Presence of cardiac pacemaker; Z79.01 Long term (current) use of anticoagulants; Z79.82 Long term (current) use of aspirin; Z79.899 Other long term (current) drug therapy; Z82.49 Family history of ischemic heart disease and other diseases of the circulatory system; Z83.3 Family history of diabetes mellitus
CPT/HCPCS: 10047; 10078; 32100

== ENCOUNTER 2018-04-22 05:29 | Emergency (ER) | payer OTHER ==
[~2018-04-22] VITALS: Ht 180.3 cm; Wt 108.9 kg
--- NOTE | ~2018-04-22 | EKG ---
[place] [address] [facility] [place] [address] ELECTROCARDIOGRAM REPORT Name: DONTE GAN [facility] [id number] Admission: 04/22/18 Attend Phys: Discharge: Date of : 46 Report #: [id number] THIS REPORT FOR: //name// [facility] ED Test Date: 2018-04-22 Test Time: 05:37:33 Pat Name: DONTE GAN Department: Room: Gender: Public Welfare Worker: Nieves JARQUIN : 1945 Requested By: Mariela Grove Order Number: [id number] MD: Vernon Burns Measurements Intervals [place] Rate: 60 P: 235 NH: 218 QRS: 146 QRSD: 157 T: 46 QT: 479 QTc: 479 Interpretive Statements Ventricular-paced rhythm No further analysis attempted due to paced rhythm Compared to ECG 02/20/2018 10:21:54 No significant changes Electronically Signed On 04-22-2018 8:14:07 CDT by Vernon Burns [email or web address] <ELECTRONICALLY SIGNED> By: Vernon Burns MD, [facility] 04/22/18 0814 0537 6 Vernon Burns MD, FACC /EPI
[~2018-04-22 05:29] MED LIST changes: +AUGMENTIN 500-1 EACH PO
[2018-04-22] MEDS ORDERED: IPRAT-ALBUT 0.5-3 ML INH (05:43)
[2018-04-22] MEDS ORDERED: ROBITUSSIN COU1 EAC2 PO (05:45)
[2018-04-22 06:29] LABS: ABSOLUTE NEUTROPHILS 7.5 thou/uL (1.4-8.2); BASOPHILS 1.1 % (0.0-2.0); EOSINOPHILS 1.9 % (0.0-3.0); HEMATOCRIT 33.7 % (42.0-52.0); HEMOGLOBIN 11.2 gm/dL (14.0-18.0); LYMPHOCYTES 8.7 % (24.0-44.0); MCHC 33.2 g/dL (28.0-37.0); MCV 93.4 fL (80.0-100.0); MONOCYTES 10.8 % (1.0-8.0); PLATELET COUNT 200 thou/uL (150-400); POLYS 77.5 % (36.0-66.0); RBC 3.61 mil/uL (4.50-6.00); WBC 9.6 thou/uL (4.0-11.0)
[2018-04-22 06:42] LABS: CALCIUM 9.4 mg/dL (8.5-10.1); POTASSIUM 3.9 mmol/L (3.5-5.1)
[2018-04-22 06:50] LABS: ALBUMIN 2.5 g/dL (3.4-5.0); TOTAL BILIRUBIN 0.7 mg/dL (<0.1-1.0); TOTAL PROTEIN 8.1 g/dL (6.4-8.2); TROPONIN-I 0.09 ng/mL (<0.06)
[2018-04-22] MEDS ORDERED: ACETAMINOPHEN-1 EAC1 PO (07:23)
== END 2018-04-22 11:28 ==
LOC: ER 05:29
PROVIDERS: Student in an Organized Health Care Education/Training Program
DX: R09.1 Pleurisy (principal); I25.10 Atherosclerotic heart disease of native coronary artery without angina pectoris; I12.0 Hypertensive chronic kidney disease with stage 5 chronic kidney disease or end stage renal disease; E11.22 Type 2 diabetes mellitus with diabetic chronic kidney disease; N18.6 End stage renal disease; E78.00 Pure hypercholesterolemia, unspecified; Z90.49 Acquired absence of other specified parts of digestive tract; J44.9 Chronic obstructive pulmonary disease, unspecified; Z88.5 Allergy status to narcotic agent; Z88.8 Allergy status to other drugs, medicaments and biological substances

== ENCOUNTER 2018-08-30 13:42 | Inpatient (IN) | payer OTHER ==
[2018-08-30] VITALS (13 sets, daily range): BP systolic 99–133; BP diastolic 51–86
[~2018-08-30] VITALS: Ht 180.3 cm; Wt 94.0 kg
--- NOTE | ~2018-08-30 | HC ---
[facility] [place] [address] CONSULTATION Name: DONTE GAN Room #: 240-P ADM IN M.R.#: [id number] Admission: 08/30/18 Attend Phys: Pedro Mancini MD Discharge: Date of : 46 Report #: [id number] THIS REPORT FOR: //name// CC: Rachel Mancini DATE OF SERVICE: 08/31/2018 CHIEF COMPLAINT: Left foot and left posterior iliac crest pressure ulcerations. HISTORY OF PRESENT ILLNESS: This is a 73-year-old male patient who was admitted to the hospital from [facility]. He developed pressure ulceration involving his left posterior superior iliac crest and also was noted to have an ulceration on the lateral foot. He has a known history of end-stage renal disease with hemodialysis, previous right below-knee amputation. It was felt that he would require surgical debridement and was admitted for further evaluation and treatment. While being evaluated, he became pulseless and apneic. CPR was initiated, was given 2 rounds of epinephrine. He was intubated. He now is in ICU. PAST MEDICAL HISTORY: Positive for diabetes mellitus; end-stage renal disease, requiring hemodialysis; spinal stenosis; paraplegia; previous right below-knee amputation; history of atrial fibrillation. ALLERGIES: MORPHINE, FENTANYL, LOPRESSOR, CLONIDINE, DILTIAZEM. MEDICATIONS: Include melatonin, Elavil, MiraLax, Tessalon Perles, FiberCon, Robitussin, Eliquis, Betadine, promethazine, Mucinex, Januvia, Reglan, Colace, Renvela, Coreg, omeprazole, oxycodone, Claritin. FAMILY HISTORY: Noncontributory. SOCIAL HISTORY: The patient resides at intermediate. No history of alcohol or tobacco use. REVIEW OF SYSTEMS: Unable to be obtained due to the patient's unresponsive status. PHYSICAL EXAMINATION: VITAL SIGNS: At this time include temperature 98.5, pulse rate 63, respiration 16, blood pressure 127/63. GENERAL: This is a chronically ill-appearing male patient who appears to be somewhat unresponsive on a ventilator in the ICU. HEENT: Head normocephalic. Nose is clear. Throat demonstrates oral endotracheal tube present. LUNGS: Coarse. [facility] [address] [place] [address] CONSULTATION Name: DONTE GAN Room #: 240- ADM IN .R.#: [id number] Admission: 08/30/18 Attend Phys: Pedro Mancini MD Discharge: Date of : 46 Report #: [id number] HEART: Regular rhythm. ABDOMEN: Soft. PELVIS: Pelvic region demonstrates pressure ulceration to the left superior, left posterior superior iliac crest. There is soft eschar. There is odor present. No obvious drainage. Depth is indeterminate as this is covered with eschar. EXTREMITIES: Lower extremities demonstrate prior right below-knee amputation that appears to be well healed. He has a circular ulceration at the lateral aspect of the left foot at the base of the fifth metatarsal that is covered with dry stable eschar. Distal pulses are not palpable. There is an obvious deformity to his proximal tibia and fibula on the left side. NEUROLOGIC: The patient is currently unresponsive, on a respirator. LABORATORY DATA: Sodium 130, potassium 4.7, chloride 93, CO2 25, BUN 57, creatinine 3.2, glucose 160. White blood cell count 10.5 with a hemoglobin of 11.9, hematocrit of 36. CLINICAL IMPRESSION: 1. Unstageable pressure ulcer to the left posterior superior iliac crest. 2. Pressure ulceration, left lateral foot. 3. Peripheral arterial disease. 4. Prior below-knee amputation. 5. End-stage renal disease, requiring dialysis. 6. Diabetes mellitus. 7. Cardiopulmonary arrest requiring mechanical ventilation. RECOMMENDATIONS: At this point in time, we recommended quarter strength Dakin's moist gauze dressing b.i.d. to the left posterior superior iliac crest ulceration. This will require debridement, will preferably a surgical operative debridement; however, this may need to be done at the bedside due to his recent cardiopulmonary arrest. We recommend arterial Dopplers to evaluate blood flow in the left leg. We will evaluate x-ray to further characterize what appears to be a fracture. I have discussed the findings with the patient's daughter who is his DPOA at the bedside. I appreciate being asked to see the patient in consultation. By: 0823 0850 Balaji Cummings MD /nt
[~2018-08-30 13:42] MED LIST changes: +ACETAMINOPHEN-1 EAC1 PO; +IPRAT-ALBUT 0.5-3 ML INH; -LACTULOSE10 GM/152; +LACTULOSE10 GM/152 PO; +ROBITUSSIN COU1 EAC2 PO
[2018-08-30 14:32] LABS: BASOPHILS 0.4 % (0.0-2.0); EOSINOPHILS 1.4 % (0.0-3.0); HEMATOCRIT 35.1 % (42.0-52.0); HEMOGLOBIN 11.4 gm/dL (14.0-18.0); MCH 29.4 pg (26.0-34.0); MCHC 32.6 g/dL (28.0-37.0); MCV 90.4 fL (80.0-100.0); MONOCYTES 8.9 % (1.0-8.0); PLATELET COUNT 195 thou/uL (150-400); POLYS 84.3 % (36.0-66.0); RBC 3.88 mil/uL (4.50-6.00); RDW 18.1 % (10.5-14.5); WBC 10.7 thou/uL (4.0-11.0)
[2018-08-30 14:42] LABS: CALCIUM 9.3 mg/dL (8.5-10.1); CREATININE 2.6 mg/dL (0.7-1.3)
[2018-08-30 14:55] LABS: ANISOCYTOSIS 1+; PLATELET ESTIMATE NORMAL; POLYCHROMASIA SLIGHT
[2018-08-30] MEDS ORDERED: FIBERCON625 MG PO (15:16)
[2018-08-30] MEDS ORDERED: TESSALON PERLE100 MG PO (15:16)
[2018-08-30] MEDS ORDERED: ROBITUSSIN100 MG/53 PO (15:19)
[2018-08-30] MEDS ORDERED: MIDODRINE HCL 55 M1 PO (15:23)
[2018-08-30] MEDS ORDERED: ELIQUIS5 MG PO (15:24)
[2018-08-30] MEDS ORDERED: BETADINE30 ML TOP ×2 (15:28→15:30)
[2018-08-30] MEDS ORDERED: GERI-HYDROLAC222 M1 TOP (15:29)
--- NOTE | 2018-08-30 17:20 | NUR ---
CHRISTIANA CORNELIUS WAS GETTING PT READY TO TRANSPORT TO FLOOR WHEN PT BECAME UNRESPONSIVE. DR. PACKER WAS MADE AWARE AND CAME TO CHECK ON PT. PT WAS BEING BAGGED AT 1722 AND NO PULSE WAS FOUND. CPR WAS STARTED AT 172. SEE CODE SHEET FOR CODE. CHRISTIANA CORNELIUS MENTIONED THAT PT WAS STARTING TO HAVE BURNING IN EYES.
[2018-08-30 18:25] LABS: BE(vivo) -1.3 mmol/L (-2 to +3); PCO2 42.6 mmHg (35.0-45.0); pH 7.369 (7.360-7.450); sO2 99.8 % (92.0-98.0)
--- NOTE | 2018-08-30 20:35 | NUR ---
REPORT CALLED, INPT NURSE STATED ROOM NOT CLEAN- SHOULD BE IN 20 MINS.
[2018-08-31] VITALS (40 sets, daily range): BP systolic 94–130; BP diastolic 49–66
--- NOTE | 2018-08-31 03:03 | NUR ---
PT ARRIVED FROM ED AT APROX 2130. GCS 10. OPENS EYES SPONTANEOUSLY, NONVERBAL, LOCALIZED RESPONSE TO PAINFUL STIMULI. BUE RETRAINTS IN PLACE. INTUBATED AND SEDATED WITH PROPOFOL. WITHOUT ADEQUATE SEDATION, PT AGITATED AND ATTEMPTS TO REMOVE ET TUBE. PACEMAKER NOT CAPTURING/SENSING. O2 SAT > 92% ON FOLLOWING VENT SETTINGS: AC, RATE 16, TV 600, PEEP 5, FIO2 60%. MODERATE VOLUME CLEAR, BLOOD-TINGED SPUTUM. SUCTION PRN. NPO. RUE AV FISTULA. ANURIC. PT HAS MULTIPLE WOUNDS. LOCATED FOLLOWS: -PRESSURE WOUND TO LEFT HIP/BUTTOCK. WOUND BED DRY, NECROTIC FLESH, STRONG ODOR. -PRESSURE WOUND TO LEFT LATERAL FOOT. ESCHAR PRESENT. FIRM, DRY. NO ORDOR. -PRESSURE WOUND TO LEFT HEEL. PINK, DRY. NO ODOR. -SCATTERED ABRASIONS TO LEFT KNEE AND HERNANDEZ. SKIN OF LLE DRY AND SCALY.
[2018-08-31 05:52] LABS: MCV 90.5 fL (80.0-100.0); RDW 18.1 % (10.5-14.5)
[2018-08-31 05:54] LABS: HEMATOCRIT 39.9 % (42.0-52.0); HEMOGLOBIN 13.3 gm/dL (14.0-18.0); MCH 30.1 pg (26.0-34.0); MCHC 33.3 g/dL (28.0-37.0); PLATELET COUNT 241 thou/uL (150-400); WBC 22.1 thou/uL (4.0-11.0)
[2018-08-31 06:13] LABS: ANION GAP 12 mmol/L (7-16); BUN 57 mg/dL (7-18); CALCIUM 9.4 mg/dL (8.5-10.1); CHLORIDE 93 mmol/L (98-107); CHOLESTEROL 95 mg/dL (<200); CO2 25 mmol/L (21-32); CREATININE 3.2 mg/dL (0.7-1.3); GLUCOSE 160 mg/dL (74-106); HDL CHOLESTEROL 41 mg/dL (>40); LDL CHOLESTEROL 33 mg/dL (<100); MAGNESIUM 2.3 mg/dL (1.8-2.4); SODIUM 130 mmol/L (136-145); TC:HDL 2.3 Ratio (Not establshd); TRIGLYCERIDE 106 mg/dL (<150); TROPONIN-I 0.46 ng/mL (<0.06); VLDL 21 mg/dL (<40)
[2018-08-31 06:15] LABS: POTASSIUM 4.7 mmol/L (3.5-5.1)
[2018-08-31 07:20] LABS: ABSOLUTE NEUTROPHILS 20.1 thou/uL (1.4-8.2); ANISOCYTOSIS 2+
--- NOTE | 2018-08-31 08:19 | EKG ---
[address] [address] ELECTROCARDIOGRAM REPORT Name: DONTE GAN Room #: 240-P ADM IN M.R.#: [id number] Admission: 08/30/18 Attend Phys: Pedro Mancini MD Discharge: Date of : 47 Report #: [id number] THIS REPORT FOR: //name// [facility] ED Test Date: 2018-08-30 Test Time: 17:37:17 Pat Name: DONTE GAN Department: Room: 240 Gender: M Lead Press Operator: KKODJOVI : 1945 Requested By: Min Clifton Order Number: [id number] MD: Vernon Burns Measurements Intervals [place] Rate: 88 P: 0 [place]: QRS: -87 QRSD: 109 T: 89 QT: 452 QTc: 547 Interpretive Statements Ventricular pacing with occasional intrinsic depolarizations Compared to ECG 04/22/2018 05:37:33 No significant change was found Electronically Signed On 08-31-2018 8:18:55 PLANNING ASSISTANT by Vernon Burns [email or web address] <ELECTRONICALLY SIGNED> By: Vernon Burns MD, [facility] 08/31/18 0818 173 173 Vernon Burns MD, [facility] /EPI
--- NOTE | 2018-08-31 08:46 | EKG ---
[address] [place] [address] ELECTROCARDIOGRAM REPORT Name: DONTE GAN Room #: 240-P ADM IN M.R.#: [id number] Admission: 08/30/18 Attend Phys: Pedro Mancini MD Discharge: Date of : 47 Report #: [id number] THIS REPORT FOR: //name// [facility] Test Date: 2018-08-31 Test Time: 07:16:28 Pat Name: DONTE GAN Department: Room: 240 Gender: M Dip Dyer: DEVON : 1945 Requested By: Pedro Mancini Order Number: [id number] MD: Vernon Burns Measurements Intervals [place] Rate: 63 P: [place]: QRS: -77 QRSD: 117 T: 63 QT: 549 QTc: 563 Interpretive Statements Atrial flutter Left anterior hemiblock Inferior infarct, old Poor R wave progression Compared to ECG 04/22/2018 05:37:33 Ventricular-paced complex(es) or rhythm no longer present Electronically Signed On 08-31-2018 8:46:40 DUMBWAITER OPERATOR by Vernon Burns [email or web address] <ELECTRONICALLY SIGNED> By: Vernon Burns MD, [facility] 08/31/18 0846 5 Vernon Burns MD, [facility] /EPI
--- NOTE | 2018-08-31 10:09 | NUR ---
Nutrition: REC consider enteral feeds within 24 hrs. While propofol is required, rec use of Vital HP to reach goal 60 mL/hr to meet needs
--- NOTE | 2018-08-31 11:24 | NUR ---
PT WITH DECLINE IN MEDICAL STATUS AFTER ORDER FOR P.T. WRITTEN. PT S/P CODE BLUE IN ED AND CURRENTLY INTUBATED AND SEDATED IN ICU. REQUEST NEW P.T. ORDERS ONCE PT IS ABLE TO PARTICIPATE IN THERAPEUTIC ACTIVITIES.
--- NOTE | 2018-08-31 11:44 | NUR ---
[facility] FAXED OVER DPOA AND PACEMAKER INFORMATION WITH FAMILY'S CONSENT. PT HAS RA/RV Medtronic 5086MRI CapSureFix MRI SureScan PACEMAKER, COPY IN CHART.
--- NOTE | 2018-08-31 12:07 | NUR ---
ORDERS FOR O.T. WERE PRIOR TO PATIENT'S CARDIAC ARREST. THEREFORE, DUE TO CHANGE IN PATIENT'S STATUS, NEW ORDERS FOR O.T. ARE NEEDED IF/WHEN APPROPRIATE. PATIENT IS ON HOLD FOR O.T.
--- NOTE | 2018-08-31 12:51 | 2DMMODE ---
[facility] [place] [address] 2 D/M-MODE ECHOCARDIOGRAM Name: DONTE GAN Nieves Room #: 240-P ADM IN .R.#: [id number] Admission: 08/30/18 Attend Phys: Pedro Mancini MD Discharge: Date of : 47 Date of Service: 08/31/18 1251 Report #: [id number] THIS REPORT FOR: //name// APPROVED REPORT Study performed: 08/31/2018 11:04:44 EXAM: Comprehensive 2D, Doppler, and color-flow Echocardiogram Patient Location: ICU Room #: 240 Status: routine BSA: 2.15 HR: 60 bpm BP: 110/54 mmHg Rhythm: Pacemaker Other Information Study Quality: Fair Indications COPD Diabetes Dyspnea Hypertension/HDD Cardiac arrest 2D Dimensions RVDd: 55.20 mm IVSd: 19.84 (7-11mm) LVOT Diam: 19.65 (18-24mm) LVDd: 42.98 mm PWd: 15.22 (7-11mm) Ascending Ao: 32.91 (22-36mm) LVDs: 26.50 (25-40mm) Aortic Root: 35.75 mm IVC: 21.00 mm Volumes Left Atrial Volume (Systole) Single Plane 4CH: 53.31 mL Single Plane 2CH: 70.41 mL LA ESV Index: 32.00 mL/m2 Aortic Valve AoV Peak Minh.: 0.98 m/s AO Peak Gr.: 3.85 mmHg LVOT Max P.84 mmHg LVOT Max V: 1.10 m/s NAOMI Vmax: 3.40 cm2 [facility] [address] [place] [address] 2 D/M-MODE ECHOCARDIOGRAM Name: DONTE GAN Room #: 240-P ADM IN .R.#: [id number] Admission: 08/30/18 Attend Phys: Pedro Mancini MD Discharge: Date of : 47 Date of Service: 08/31/18 1251 Report #: [id number] Pulmonary Valve PV Peak Minh.: 0.97 m/s PV Peak Gr.: 3.75 mmHg Tricuspid Valve TR Peak Minh.: 3.00 m/s TR Peak Gr.: 35.91 mmHg PA Pressure: 51.00 mmHg Left Ventricle The left ventricle is normal size. Regional wall motion is not well visualized but grossly normal. Moderate to severe concentric left ventricular hypertrophy. The left ventricular systolic function is normal. The left ventricular ejection fraction is within the normal range. LVEF is 55-60%. This study is not technically sufficient to allow evaluation of the LV diastolic function. Right Ventricle The right ventricle is normal size. The right ventricular systolic function is normal. Pacemaker lead is present in the right ventricle. Atria Left atrium is at the upper limits of normal. Right atrium is dilated. Aortic Valve The aortic valve is mildly sclerotic. No aortic regurgitation is present. There is no aortic valvular stenosis. Mitral Valve Mild mitral annular calcification There is no mitral valve regurgitation noted. No evidence of mitral valve stenosis. Tricuspid Valve The tricuspid valve is normal in structure. There is mild tricuspid regurgitation. Estimated PAP 50 mmHg. There is moderate pulmonary hypertension. Pulmonic Valve The pulmonary valve is normal in structure. Trace pulmonic regurgitation. Great Vessels The aortic root is normal in size. The inferior vena cava is dilated with no inspiratory collapse. Pericardium [facility] [address] [place] [address] 2 D/M-MODE ECHOCARDIOGRAM Name: DONTE GAN Nieves Room #: 240-P [facility] IN M.R.#: [id number] Admission: 08/30/18 Attend Phys: Pedro Mancini MD Discharge: Date of : 47 Date of Service: 08/31/18 1251 Report #: [id number] There is no pericardial effusion. <Conclusion> The left ventricular systolic function is normal. Regional wall motion is not well visualized but grossly normal. LVEF is 55-60%. Pacing wires in right heart. The aortic valve is mildly sclerotic. No aortic regurgitation or stenosis Mild mitral annular calcification. No mitral valve regurgitation There is mild tricuspid regurgitation. Estimated pulmonary artery pressure of 50 mmHg. There is no pericardial effusion. <ELECTRONICALLY SIGNED> By: Vernon Burns MD, [facility] 08/31/18 1251 125 50 Vernon Burns MD, FAC /INF
--- NOTE | 2018-08-31 13:27 | NUR ---
FAXED CLINICAL UPDATE TO [facility] SPOKE WITH NISH IN ADM. SHE RECEIVED UPDATE. DCP TO FOLLOW.
--- NOTE | 2018-08-31 13:37 | NUR ---
WOUND CONSULT: PT. WAS SEEN TODAY BY DR. ASHFORD AND MYSELF. PT. HAS UNSTAGABLE PRESSURE ULCERS TO HIS LEFT SUPERIOR POSTERIOR ILIAC CREST ALONG WITH AN UNSTAGABLE PRESSURE ULCER TO HIS LEFT LATERAL FOOT. PT. WOUND TO HIS FOOT IS COVERED IN DRY, STABLE ESCHAR AT THIS TIME. HIS ILIAC CREST TISSUE IS MOIST, SOFT, AND BLACK WITH A FOUL ODOR NOTED. RECOMMENDATIONS: WOUND CARE TO LEFT LATERAL FOOT: GENTLY CLEANSE WITH WOUND CLEANSER OR NORMAL SALINE, PAINT WITH BETADINE, LEAVE OPEN TO AIR, COMPLETE CARES DAILY. WOUND CARE TO LEFT ILIAC CREST: GENTLY CLEANSE AREA WITH WOUND CLEANSER OR NORMAL SALINE, PACK WITH DAKIN MOIST KERLIX, COVER WITH ABD, SECURE WITH TAPE, COMPLETE CARES BID. TURN Q2 HOURS KEEP PT. OFF WOUNDS MUCH POSSIBLE KEEP ON INDER MATRESS. PT. AND STAFF NURSE WERE INSTRUCTED ON PLAN OF CARE.
--- NOTE | 2018-08-31 17:02 | NUR ---
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 PATIENT IN ER FOR EVALUATON OF WOUND AND WENT INTO CARDIAC ARREST. ADMITTED TO ICU, INTUBATED AND SEDATED. DTR IS DPOA. PATIENT A PARA, WITH BKA. HE IS ESRD MWF DIALYSIS, USES LIFT DEVICE AND WC. HAVE UPDATED [facility]. CONT TO FOLLOW TO ASSIST WITH DC PLANNING.
--- NOTE | 2018-08-31 17:34 | NUR ---
ASSUMED CARE OF PT AT 0700 THIS SHIFT. PT HAS BEEN INTUBATED AND SEDATED, NO APPARENT PAIN. PT IS EXTREMELY AGITATED WITH LESSENED SEDATION, PROPOFOL GTT FOR VENT MANAGEMENT. PT IS STILL ON LEVOPHED GTT FOR BP MANAGEMENT, TO KEEP MAP >[address] LUGO[address] XR TAKEN OF PT'S LEFT LEG, SHOWING FRACTURE, RESULTS DOCUMENTED. PT HAS PRESSURE ULCERS, WOUND CARE FOLLOWING. ASSESSMENTS ARE DOCUMENTED. PT HAS HAD VISITORS THIS SHIFT, EDUCATION WAS PROVIDED. PLAN OF CARE IS TO MONITOR PT CLOSELY.
--- NOTE | 2018-08-31 22:40 | NUR ---
INTUBATED. SEDATED WITH PROPOFOL. WITH SEDATION DECREASED, PT BECOMES AGITATED. BUE RESTRAINTS IN PLACE. V-PACED ON MONITOR. TITRATING LEVOPHED GTT TO MAINTAIN MAP > 60. O2 SAT > 92% WITH FIO2 30%. SMALL VOLUME CLEAR SPUTUM. SUCTION PRN. NG TUBE TO LIS. ANURIC. DIALYSIS THURSDAY. WOUNDS DOCUMENTED. VITAL SIGNS AND ASSESSMENTS DOCUMENTED. WILL CONTINUE TO MONITOR.
[2018-09-01] VITALS (61 sets, daily range): BP systolic 61–141; BP diastolic 32–72
[2018-09-01 04:43] LABS: HEMOGLOBIN 11.9 gm/dL (14.0-18.0); MCH 29.5 pg (26.0-34.0); MCV 89.4 fL (80.0-100.0); RBC 4.02 mil/uL (4.50-6.00); WBC 10.5 thou/uL (4.0-11.0)
[2018-09-01 04:58] LABS: ALBUMIN 2.1 g/dL (3.4-5.0); CALCIUM 9.2 mg/dL (8.5-10.1); CREATININE 3.8 mg/dL (0.7-1.3); PHOSPHORUS 2.5 mg/dL (2.5-4.9); POTASSIUM 3.9 mmol/L (3.5-5.1)
--- NOTE | 2018-09-01 13:11 | HC ---
[facility] [place] [address] CONSULTATION Name: DONTE GAN Room #: 240-P [facility] IN M.R.#: [id number] Admission: 08/30/18 Attend Phys: Pedro Mancini MD Discharge: Date of : 46 Report #: [id number] THIS REPORT FOR: //name// CC: Rachel Maxinesenthil Pedro Mancini DATE OF SERVICE: 08/31/2018 REASON FOR CONSULTATION: I was asked to evaluate concerning septic shock. HISTORY OF PRESENT ILLNESS: The patient was a 73-year-old known from his previous hospitalization with end-stage renal disease, diabetes and spinal stenosis with paraparesis who presents on 08/30/2018 for further evaluation of the left sacral pressure wound infection. He was in the Emergency Room yesterday and became apneic. He was found to be in PEA. He was resuscitated and now on the ventilator in the ICU on vasopressors. He remains encephalopathic. He has had a small to moderate amount of tracheal secretions. He has an odorous left sacral wound. He has no vomiting or diarrhea. He dialyzed yesterday prior to his arrival. He has been followed by the Nephrology service. He has a right BKA. He has a left tibial fracture and a left malleolus fracture. He was given vancomycin and Zosyn and that is in the Emergency Room. During his infusion is when the code developed, he was; therefore, switched to vancomycin and meropenem. He has been hypothermic and hypotensive. No report of emesis. No report of diarrhea. Fernández odorous drainage from sacral wound. No report of trauma. Now on vasopressors and intubated and sedated. PAST MEDICAL HISTORY: End-stage renal disease, diabetes, spinal stenosis, paraparesis, multiple back surgeries with hardware placement, hyperlipidemia, sick sinus syndrome, permanent pacemaker, atrial fibrillation, chronic anticoagulation, hypertension, COPD, obstructive sleep apnea, obesity, right BKA, right upper extremity AV fistula, cholecystectomy and knee surgery. ALLERGIES: MORPHINE, FENTANYL, LOPRESSOR, CLONIDINE AND DILTIAZEM. MEDICATIONS: As noted on his MAR, now on vancomycin and meropenem. FAMILY HISTORY: Noncontributory. SOCIAL HISTORY: jail resident, nonsmoker and no significant alcohol intake. REVIEW OF SYSTEMS: The patient was unable to give any further details due to his encephalopathy and on the ventilator. PHYSICAL EXAMINATION: [facility] [address] [place] [address] CONSULTATION Name: DONTE GAN Room #: 240-P [facility] IN M.R.#: [id number] Admission: 08/30/18 Attend Phys: Pedro Mancini MD Discharge: Date of : 46 Report #: [id number] VITALS: hypothermic, on vasopressors to maintain BP syst. over 90. hr 60. GENERAL: He has peripheral IVs in place. He was sedated, obese. SKIN: Large superior lateral sacral wound with eschar and odorous drainage. Surrounding erythema. Some fluctuance. Left lower extremity pressure wounds with eschar to the lateral foot and ankle region. No palpable adenopathy. EYES: Without scleral icterus. Pupils were reactive to light. MOUTH: Orally intubated, few teeth remain. No mucositis or lesion identified. NECK: Supple. LUNGS: Few crackles in the bases bilaterally without consolidation. HEART: Regular, without murmur, gallop or rub. Right upper extremity AV access unremarkable. ABDOMEN: Abdomen was mildly distended and obese. No appreciable masses or hepatosplenomegaly. GENITOURINARY: External genitalia unremarkable with no masses or ulcerations. RECTAL: Not performed. EXTREMITIES: Right BKA site unremarkable. Left lower extremity had flail lower extremity below the knee consistent with his proximal fracture. The patient did not move his lower extremities. He did move his upper extremities to pain. NEUROLOGIC: Unable to further assess his cranial nerves or mood. LABORATORY STUDIES: Sedimentation rate was 60. Wound cultures are pending. X-ray of the lower extremity shows proximal tibial fracture and medial malleolus fracture. Left leg arterial studies showed 50% occlusive disease. Chest x-ray showed permanent pacemaker and basilar atelectasis. Hemoglobin 13.3, WBC 22.1, 87% segs, 4% bands and platelet count 241,000. Sodium 130, potassium 4.7, bicarbonate 25 and creatinine 3.2. Blood, sputum and wound cultures are pending. IMPRESSION AND PLAN: A 73-year-old with septic shock, possible wound as the initial source, now concerned about aspiration. He has respiratory failure, end-stage renal disease and paraplegia from spinal stenosis. He has a fracture of the left tibia and malleolus. Post code with probable aspiration pneumonia. RECOMMENDATIONS: We will continue broad antibiotic coverage, pending further culture results. I have discussed with nursing staff. Would splint left leg to protect. Would have Orthopedic Surgery evaluate if not done previously. We will continue ICU with sepsis protocol and full support. Adjust his antibiotics pending cultures. Surgical evaluation for debridement of his sacral wound. <ELECTRONICALLY SIGNED> By: Wood Lloyd MD 09/01/18 1311 [id number] Wood Lloyd MD /nt
--- NOTE | 2018-09-01 14:05 | NUR ---
Pt's dtr/dpoa Kristopher here visiting. Monkey Breeder verified that a copy of his DPOA for health care and finances is on the chart. Dtr wanting to discuss his condition, prognosis and plan of care with the attending. She indicates that the pt would want to be a DNR and will discuss this with the attending as well. Support provided. She notes that the pt has been refusing to come to the hospital and the facility indicates that as well. Will follow for support. The pt is in ICU on the vent/levo/sedated. He is known to cm from previous admissions and multiple medical issues. Pt's sister and brother were here this am as well. [facility]. They are holding his room. Will follow.
--- NOTE | 2018-09-01 16:55 | NUR ---
WOUND FOLLOW UP: PT. WAS SEEN TODAY BY DR. ASHFORD AND MYSELF. DR. ASHFORD COMPLETED A BEDSIDE DEBRIDEMENT TODAY OF PT. PRESSURE ULCER TO HIS LEFT ISCHIAL CREST. PRE DEBRIDEMENT MEASUREMENTS WERE: 7.3 X 6.8 X 0.1, POST DEBRIDEMENT MEASUREMENTS WERE: 7.3 X 6.8 X 2.0. PT. TOLERATED PROCEDURE WELL. RECOMMENDATIONS: CONTINUE WITH CURRENT PLAN OF CARE. PT. AND STAFF NURSE WERE INSTRUCTED ON PLAN OF CARE.
--- NOTE | 2018-09-01 19:39 | HC ---
[facility] [place] [address] [place] [address] CONSULTATION Name: DONTE GAN Room #: 240-P ADM IN M.R.#: [id number] Admission: 08/30/18 Attend Phys: Pedro Mancini MD Discharge: Date of : 46 Report #: [id number] THIS REPORT FOR: //name// CC: Rachel Mancini REFERRING PHYSICIAN: Dr. Mancini. REASON FOR REFERRAL: Acute respiratory failure. HISTORY OF PRESENT ILLNESS: The patient is a 73-year-old male who was brought to the Emergency Room with worsening left hip wound. While I was waiting for hospital bed in the ER, the patient became apneic and pulseless. The patient was intubated. A pulmonary consultation was requested. The patient is known to the Pulmonary Service. He has had numerous hospitalizations over the past year. Last one being 03/2018. He was treated for pneumonia on that admission. According to the records, the patient resides at [facility]. The medical staff noted that the left hip wound had foul odor along with drainage. For that reason, he was brought to the Emergency Room. While waiting in the ER, the patient became apneic and pulseless. CPR was given. He was given 2 rounds of epinephrine. The patient had return of pulse with an adequate blood pressure. He was transferred to the ICU. In the ICU, the patient had been arousable, following commands. He had been becoming restless at times. He is requiring sedation at this time. PAST MEDICAL HISTORY: Notable for multiple hospitalizations as mentioned above. End-stage renal disease due to longstanding diabetes mellitus, on hemodialysis. Lumbar spinal stenosis, multiple back surgeries, paraplegia due to severe spinal stenosis, dyslipidemia. Sick sinus syndrome, status post permanent pacemaker placement. Pulmonary atrial fibrillation, on chronic anticoagulation. Diabetes mellitus type 2, hypertension, COPD with probable RANDI, obesity hypoventilation syndrome. PAST SURGICAL HISTORY: As mentioned above, status post right AKA, fistula placement for hemodialysis needs in upper extremity, cholecystectomy, knee surgery. ALLERGIES: MORPHINE, FENTANYL, LOPRESSOR, CLONIDINE, DILTIAZEM WHICH CAUSED RASH. MEDICATIONS: On admission are reviewed. This includes melatonin, Elavil, MiraLax, nebulized DuoNeb, Tessalon Perles, FiberCon, Robitussin, Eliquis, Betadine, promethazine, Mucinex, Januvia, Reglan, Colace, Renvela, Coreg, [facility] [address] [place] [address] CONSULTATION Name: DONTE GAN Nieves Room #: 240-P [facility] IN ..#: [id number] Admission: 08/30/18 Attend Phys: Pedro Mancini MD Discharge: Date of : 46 Report #: [id number] omeprazole, oxycodone , Claritin. FAMILY HISTORY: Noncontributory. SOCIAL HISTORY: Resides at a long-term as mentioned above. No prior history of tobacco or alcohol use. REVIEW OF SYSTEMS: As mentioned above, otherwise deferred as the patient is intubated. PHYSICAL EXAMINATION: GENERAL: He is sedated. VITAL SIGNS: Temperature is 99 degrees Fahrenheit, pulse is 63, respiratory rate is 16, blood pressure 127/63 mmHg, saturation 100%. HEENT: Normocephalic, atraumatic. NECK: Supple, without lymphadenopathy or thyromegaly. CHEST: Breath sounds are good anteriorly. No obvious rales or wheezes. CARDIOVASCULAR: Normal S1, S2. No murmurs or gallop. There is no JVD, no carotid bruit. Pulses are 2+/4+ bilaterally. ABDOMEN: Soft, nontender, no organomegaly or masses felt. GENITOURINARY: Deferred. RECTAL: Deferred. EXTREMITIES: No cyanosis, clubbing, edema. Remarkable for right ____ as mentioned above. LABORATORY DATA: Portable chest x-ray shows mild basilar infiltrates. ET tube is approximately 2 cm above the shona. Echocardiogram showed normal LV function, ejection fraction approximately 60%, no significant valvular pathology. Pulmonary aortic pressure measuring 50 mmHg. Electrolytes: Sodium 130, potassium 4.7, chloride 93, CO2 of 25, BUN is 57, creatinine 3.2. WBC 22,100, hemoglobin 13.3, platelets are normal, no evidence of bandemia. Troponin 0.46. Arterial blood gas revealed pH 7.36, pCO2 of 42, pO2 of 398 on FiO2 of 100%. IMPRESSION: 1. Acute cardiopulmonary arrest in this 73-year-old male. He has had a prior history of cardiopulmonary arrest. He has a history of sleep apnea with possible obesity hypoventilation syndrome. Etiology unclear, but may be related to sleep disorder breathing. 2. Left hip wound. 3. Hypotension. Suspect related to sepsis, likely severe, currently on vasopressors. 4. Acute hypoxic respiratory failure due to above. 5. Chronic obstructive pulmonary disease. 6. Obstructive sleep apneic with probable obesity hypoventilation syndrome. 7. End-stage renal disease, on hemodialysis. [facility] [address] [place] [address] CONSULTATION Name: DONTE GAN Room #: 240-P ADM IN M.Rah.#: [id number] Admission: 08/30/18 Attend Phys: Pedro Mancini MD Discharge: Date of : 46 Report #: [id number] 8. Atrial flutter, sick sinus syndrome, status post permanent pacemaker placement. 9. Diabetes mellitus type 2. 10. Severe spinal stenosis, paraplegia. 11. Status post right below-knee amputation. RECOMMENDATIONS: We will continue mechanical ventilation, wean O2 for saturation 90%. Defer antibiotics to Infectious Disease regarding the left hip wound. Continue vasopressors to keep systolic greater than 90 mmHg. Bronchodilators along with steroids will be initiated. DVT and GI prophylaxis recommended. <ELECTRONICALLY SIGNED> By: Steve Bardales MD 09/01/18 [id number] Steve Bardales MD /nt
--- NOTE | 2018-09-01 20:12 | NUR ---
PATIENT SEDATED ON PROPOFOL, ALERT WHEN COMPLETING SEDATION VACATION. V-PACED ON AGRICULTURAL COMMODITIES INSPECTOR. VENTILATOR 30% FIO2. NG TUBE TO LOW INTERMITTENT SUCTION. RIGHT UPPER ARM DIALYSIS SITE INTACT, PATIENT ANURIC. RESTRAINTS PRESENT, NO SIGNS OF BREAKDOWN. FAMILY UPDATED ON THE PLAN OF CARE, ALL QUESTIONS ADDRESSED. NO SIGNS OF ACUTE DISTRESS NOTED AT THIS TIME. WILL CONTINUE TO MONITOR.
[2018-09-02] VITALS (53 sets, daily range): BP systolic 49–156; BP diastolic 27–81
[2018-09-02 04:40] LABS: HEMATOCRIT 35.4 % (42.0-52.0); HEMOGLOBIN 11.5 gm/dL (14.0-18.0); MCH 29.4 pg (26.0-34.0); MCHC 32.4 g/dL (28.0-37.0); MCV 90.6 fL (80.0-100.0); RBC 3.9 mil/uL (4.50-6.00); RDW 18.7 % (10.5-14.5); WBC 7.7 thou/uL (4.0-11.0)
[2018-09-02 04:48] LABS: ALBUMIN 2.1 g/dL (3.4-5.0); CREATININE 2.9 mg/dL (0.7-1.3); PHOSPHORUS 4.1 mg/dL (2.5-4.9); POTASSIUM 4.2 mmol/L (3.5-5.1)
--- NOTE | 2018-09-02 05:18 | HC ---
[facility] [place] [address] CONSULTATION Name: DONTE GAN Room #: 240-P ADM IN M.R.#: [id number] Admission: 08/30/18 Attend Phys: Pedro Mancini MD Discharge: Date of : 46 Report #: [id number] THIS REPORT FOR: //name// CC: Wood Mims MD TYPE OF REPORT: Gastroenterology consultation. PATIENT OF: Rachel Parr D.O. and Pedro Mancini M.D. CHIEF COMPLAINT: This is a very pleasant 73-year-old -[place] male who I know from previous evaluations who is currently unresponsive due to sedation and being on the ventilator. The patient was apparently admitted yesterday through the Emergency Room. He came in for evaluation of the sacral decubitus ulcer and was receiving IV antibiotics after dialysis in the Emergency Room, when he went into pulseless electrical activity and a full code blue. He was resuscitated and his rhythm returned. He does have a pacemaker and he is in the ICU following that acute code blue situation. He has been found since admission to have a left proximal tibial fracture and medial malleolus fracture. He was found to be in sepsis. He is currently intubated and on the vent with acute respiratory failure. He has a history of COPD and obstructive sleep apnea. The patient is a dialysis patient, on hemodialysis. He has diabetes mellitus by history and may have some gastroparesis. He is on Reglan. He has a history of hypertension but now is hypotensive and takes midodrine. He is currently on Levophed in the ICU. He also has a history of hyperlipidemia. PAST MEDICAL HISTORY: Also includes severe spinal stenosis, sick-sinus syndrome with a pacemaker. He has history of atrial fibrillation and he has been on Eliquis prior to admission. He has history of obesity, right gkmdu-mpl-vray amputation and left sacral pressure wound. PAST SURGICAL HISTORY: Significant for multiple back surgeries, has severe spinal stenosis. He has had a right upper quadrant AV fistula placed. He has history of cholecystectomy. He has had knee surgery before and he had a permanent pacemaker inserted and he had a right apadk-asm-xrho amputation. ALLERGIES: To MORPHINE SULFATE, FENTANYL, LOPRESSOR, CLONIDINE and DILTIAZEM. MEDICATIONS: Prior to admission included amitriptyline, Eliquis, Tessalon Perles, calcium, Coreg, Tylenol No. 3, Colace, folate, Robitussin, Mucinex, ipratropium, albuterol inhaler, lactulose p.r.n. for constipation, Claritin, melatonin, Reglan, midodrine, omeprazole, Percocet, MiraLax, Betadine, Renvela and Januvia. [facility] [address] [place] [address] CONSULTATION Name: DONTE GAN Room #: 240-P ADM IN M.R.#: [id number] Admission: 08/30/18 Attend Phys: Pedro Mancini MD Discharge: Date of : 46 Report #: [id number] SOCIAL HISTORY: He does not smoke He does not drink alcohol. He lives in a fpc. FAMILY HISTORY: Not obtainable at this time. REVIEW OF SYSTEMS: Not obtainable at this time as the patient is unresponsive. PHYSICAL EXAMINATION: GENERAL: Reveals well-developed, well-nourished 73-year-old -[place] male, in no apparent distress at the time of the examination who is not awake but is sedated on the vent. He is constantly moving his right upper extremity to try to obtain access to his endotracheal tube and his NG tube probably in order to pull them out. HEENT: He is normocephalic, atraumatic and anicteric. HEART: Rhythm is regular, but he is in a 100% paced mode right now. LUNGS: Clear to auscultation bilaterally. ABDOMEN: Soft. Bowel sounds are present but decreased. There is no palpable organomegaly or mass. There is no tenderness, rebound or guarding. EXTREMITIES: Warm and dry at least what remains of them. NEUROLOGICAL: I did not check him extensively neurologically. SIGNIFICANT LABORATORY DATA: Showed a hemoglobin of 11.4 on admission yesterday and today it is 11.9. In that interval, there was an outlier hemoglobin of 13.3. I am not sure that is accurate in him at all. Electrolytes: Sodium was 131, chloride 93, potassium 3.0, CO2 is 30, BUN 44 and creatinine 2.6. His BUN has gone up to 70 today and creatinine is 3.8. He is being dialyzed today. Potassium is low and is being replaced. Magnesium was normal. X-rays shows nodular opacities in the left upper lung, pulmonary masses and nodules cannot be excluded and CT scan of the chest was recommended. Ultrasound of the left arteries in his lower extremities show 40%-50% stenosis of the distal paimiut left superficial femoral artery, not felt to be flow limiting in the 40%-50% stenosis of the mid paimiut left popliteal artery. He has a transverse proximal tibial fracture and a slight medial tilt of the tibia. There is a fracture line extending over a 12 mm segment. He has a medial malleolar fracture without displacement on that side as well. He has got atherosclerotic changes throughout the visualized arterial vessels. IMPRESSION: 1. Upper gastrointestinal bleed after nasogastric tube inserted, likely secondary to trauma. Drainage is ruiz at this time. I do not see any red blood at all. There has been no reported melena or hematochezia. 2. Status post code blue. The patient was in a pulseless electrical activity (PEA) yesterday after dialysis and while receiving Zosyn transfusion, he was coded and brought back. He is now on the vent with respiratory failure. He is sedated and does not respond to any verbal questioning. 3. Left proximal tibial fracture and medial malleolus fracture. [facility] [address] [place] [address] CONSULTATION Name: DONTE GAN Room #: 240-P [facility] IN .R.#: [id number] Admission: 08/30/18 Attend Phys: Pedro Mancini MD Discharge: Date of : 46 Report #: [id number] 4. Sepsis. 5. Acute respiratory failure. 6. End-stage renal disease, on dialysis. 7. Diabetes mellitus, possible gastroparesis. He is on Reglan. 8. Hypertension in the past and is hypertensive and takes midodrine, currently is on Levophed in the Intensive Care Unit. 9. Hyperlipidemia. 10. Severe spinal stenosis. 11. Sick sinus syndrome, he has a pacemaker. He has history of atrial fibrillation and has been on Eliquis previously. 12. Chronic obstructive pulmonary disease and respiratory failure. 13. Obstructive sleep apnea. 14. Right kkoxf-tux-nvob amputation. 15. Left sacral pressure ulcer. PLAN: I agree with proton pump inhibitors as I see no evidence of ongoing active GI blood loss, so we would recommend careful monitoring of his stools and the NG output as well as his H and H. The rising BUN could be due to upper GI bleeding, but we have no evidence of a significant amount of blood arising from the GI tract. I agree with the orthopedic consult. We would continue the antibiotics as prescribed. No endoscopy is currently placed at this point but if he shows acute gastrointestinal blood loss, we will proceed with EGD. Thank you very much once again for allowing me to participate in his care, Dr. Mancini and Dr. Parr. <ELECTRONICALLY SIGNED> By: Kaleigh Degroot DO 09/02/18 0518 [id number] Kaleigh Degroot DO /nt
[2018-09-02 05:21] LABS: BE(vivo) 0 mmol/L (-2 to +3); PCO2 32.3 mmHg (35.0-45.0); PO2 71.4 mmHg (80.0-100.0); pH 7.471 (7.360-7.450); sO2 95.4 % (92.0-98.0)
--- NOTE | 2018-09-02 05:23 | NUR ---
PT REMAINS ON VENT 30% FIO2 SATS 99. CONTINUES WITH PROPOFOL FOR VENT COMFORT AND LEVO GTT TO KEEP MAP>60. PT VPACED ON MONITOR. PT TOLERATING FREQUENT TURNS. AM LABS REVIEWED.
--- NOTE | 2018-09-02 12:39 | NUR ---
WOUND FOLLOW UP: PT. WAS SEEN TODAY BY DR. RENTERIA AND MYSELF. PT. WOUND TO HIS LEFT ILIAC CREST IS STABLE FROM YESTERDAY BEDSIDE DEBRIDEMENT, LEFT LATERAL FOOT WOUND IS NON-CHANGING AT THIS TIME. RECOMMENDATIONS: CONTINUE WITH CURRENT PLAN OF CARE. PT. AND STAFF NURSE WERE INSTRUCTED ON PLAN OF CARE.
--- NOTE | 2018-09-02 16:07 | NUR ---
1330 - PT COMPASSIONATELY EXTUBATED BY RESP PER DR. LANDEROS AND DPOA WISHES DPOA AT BEDSIDE /C SEVERAL OTHER FAMILY MEMBERS - [employer] AND [employer] NOEL [employer] CONSULTED ON PACEMAKER AND INSTRUCTED THERE IS NOTHING TO DO /C PACEMAKER - PT MEDICATED /C MORPHINE AND ATIVAN, PER ORDERS, FOR COMFORT - HOSPITALITY GIVEN TO FAMILY AT BEDSIDE INCLUDING TISSUES AND ICE WATER 1515 - DR. SONG AT BEDSIDE - FAMILY QUESTIONS ANSWERED - FAMILY VERY APPRECIATIVE 1600 - PT REMAINS COMFORTABLE /S SIGNS OF DISTRESS - FAMILY REMAINS AT BEDSIDE
--- NOTE | 2018-09-02 18:36 | NUR ---
PT RESTING COMFORTABLY ON MORPHINE GTT
[2018-09-03] VITALS (12 sets, daily range): BP systolic 44–88; BP diastolic 21–48
--- NOTE | 2018-09-03 04:37 | NUR ---
PT RESTING COMFORTABLE. REMAINS ON MORPHINE GTT. PT CONTINUES ON RA AND COMFORT CARES ONLY. ON MONITOR VPACED. PT REMAINS SOFT LAST CHECK WAS 44/24 AND RR 6 AND SATS 98%.
--- NOTE | 2018-09-03 05:29 | NUR ---
PT MORE AGONAL BREATHING. LAST BP 50/21 RR 5. CALL PLACED TO CORINNE, PT NEPHEW, GAVE UPDATE ON PT STATUS. CORINNE SAID HE WILL BE IN SHORLTY MOST LIKELY BY 7AM.
--- NOTE | 2018-09-03 05:45 | NUR ---
SPOKE TO RIANA, PT DTR AND ALSO ANOTHER SISTER REGARDING PT STATUS. ALLOWED FOR QUESTIONS. THEY DIDN'T CLEARLY STATE THEY WOULD COME IN SOON. BUT CLARIFIED PT RECENT CONDITION TO FAMILY.
--- NOTE | 2018-09-03 06:43 | NUR ---
FAMILY MEMBERS AT BEDSIDE WITH PT NOW.
--- NOTE | 2018-09-03 07:38 | NUR ---
Assumed care of patient at 0700. Patient has been made comfort care since yesterday. Several family members at bedside. Educated regarding isolation precautions, but many are not wearing gowns and gloves. Morphine drip infusing, see EMAR. PRN ativan as needed. Patient appears restful, without air hunger or distress noted. Continue to monitor and offer emotional support. Will update consults as they round.
--- NOTE | 2018-09-03 08:52 | NUR ---
Nutritin: Defer eval, pt is now comfort care.
--- NOTE | 2018-09-03 09:22 | HC ---
[facility] [place] [address] CONSULTATION Name: DONTE GAN Room #: 240-P ADM IN M.R.#: [id number] Admission: 08/30/18 Attend Phys: Pedro Mancini MD Discharge: Date of : 47 Report #: [id number] THIS REPORT FOR: //name// CC: Rachel Mancini DATE OF SERVICE: 08/31/2018 INCOMPLETE DICTATION NEPHROLOGY CONSULTATION REASON FOR CONSULTATION: End-stage renal disease. HISTORY OF PRESENT ILLNESS: This 73-year-old gentleman, well known to our service, with multiple previous admissions at [facility]. He was admitted after dialysis yesterday for care and treatment of the left hip and left heel wounds, was getting an antibiotic in the Emergency Room and had an event requiring intubation. He did have apparently some CPR and was admitted to ICU. He is sedated on propofol on the vent, ET tube in place and he is hemodynamically stable at this time. Extensive history taken from the charts and also from his brother who was in the room. PAST MEDICAL HISTORY: Long-standing diabetes mellitus with peripheral neuropathy, no known retinopathy; end-stage renal disease, has been on dialysis for 10-12 years. He has spinal stenosis with weakness of his lower extremities and a previous right uhguo-qbv-aeik amputation. He has had traumatic injury to his left leg as well. He has had history of COPD. He has had previous AFib and atrial flutter, has a pacemaker; right arm AV fistula and previous small-bowel obstruction as well. FAMILY HISTORY: Positive for diabetes, but not renal disease. SOCIAL HISTORY: He is a former smoker, but he quit. He lives in a nursing facility. REVIEW OF SYSTEMS: Cannot be taken. I did ask his brother some questions apparently normally. He does have pretty good mental status. He has been in bed, not out of bed at all of late due to the fact that he had a motorized wheelchair, but that broke. Apparently, his appetite has been reasonably well. He can get short winded at times. Had not been complaining of any chest pain, etc. PHYSICAL EXAMINATION: GENERAL: This is a chronically ill-appearing gentleman on the ventilator. ET tube in place. [facility] [address] [place] [address] CONSULTATION Name: DONTE GAN Room #: 240- ADM IN M.R.#: [id number] Admission: 08/30/18 Attend Phys: Pedro Mancini MD Discharge: Date of : 47 Report #: [id number] SKIN: He has got the wounds on his left hip and left heel and the skeletal shows a right below-knee amputation. HEENT: Extraocular movements are not tested. Endotracheal tube in place. NECK: Supple. CHEST: Clear, anterior examination, with diminishment at the bases. HEART: For the most part, regular. ABDOMEN: Soft and nontender. EXTREMITIES: Show no edema. NEUROLOGIC: Cannot be tested. He is sedated with propofol on the ventilator. LABORATORY DATA: His hemoglobin is 13.3, white count 22.1 and platelets 241,000. He did have 4% bands. Sodium 130, potassium 4.7, chloride 93, bicarbonate 25, BUN 57, creatinine 3.2 and magnesium 2.3. ASSESSMENT AND PLAN: 1. End-stage renal disease. We will continue on 3 times weekly dialysis. Dialysis will be ordered for tomorrow. 2. Status post possible cardiorespiratory arrest. We will wean him off the Levophed. He does appear to be volume replete at the current time. 3. History of hypotension, on midodrine, predialysis. 4. 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 5. History of right irged-xqy-yotw amputation. 6. Left hip and left heel wounds. 7. History of chronic obstructive pulmonary disease. 8. Spinal stenosis with lower extremity weakness. DICTATION ENDS HERE. <ELECTRONICALLY SIGNED> By: Osmany العلي MD 09/03/18 0922 [id number] Osmany العلي MD /nt
--- NOTE | 2018-09-03 09:59 | NUR ---
Patient time of 826. Attending MD and all consults made aware. [facility] notified. Family remains at bedside at this time.
--- NOTE | 2018-09-03 12:26 | O ---
[facility] [place] [address] OPERATIVE REPORT Name: DONTE GAN Room #: 240-P [facility] IN M.R.#: [id number] Admission: 08/30/18 Attend Phys: Pedro Mancini MD Discharge: Date of : 47 Report #: [id number] THIS REPORT FOR: //name// CC: Rachel Mancini DATE OF SERVICE: 09/01/2018 DIAGNOSIS: Unstageable pressure ulceration to the left posterior superior iliac crest. POSTPROCEDURE DIAGNOSIES: Stage 3 pressure ulcer over the left posterior superior iliac crest. PROCEDURE PERFORMED: Sharp full thickness surgical debridement of a pressure ulceration. DESCRIPTION OF PROCEDURE: After consent was obtained from the patient's DPOA verbally at the bedside yesterday, we have discussed the need for debridement due to the infection and possible sepsis and metabolic load and possible underlying abscess. The patient was placed in the right lateral decubitus position. The area was then prepped and draped in sterile fashion. A #15 blade scalpel was used to excise necrotic skin and subcutaneous tissue down to a clean bleeding base. The predebridement measurements were 7.3 x 6.8 x 0.1 cm. Post-debridement measurements were 7.3 x 6.8 x 2.0 cm. The patient tolerated the procedure well, did not appear to have any pain during the procedure. Estimated blood loss was approximately 3 mL. Hemostasis was intact with direct pressure. Dakin moist gauze dressing was then applied. The patient tolerated the procedure well. <ELECTRONICALLY SIGNED> By: Balaji Cummings MD 09/03/18 1226 [id number] Balaji Cummings MD /nt
== END 2018-09-03 08:27 | DRG 853 ==
LOC: ER 13:42 → ICU 16:08 → EROBS 16:08 → 4E 17:17 → EROBS 18:02 → ICU 21:27
PROVIDERS: Emergency Medicine; Internal Medicine Nephrology; Internal Medicine Pulmonary Disease; Nurse Practitioner; ADMIT Internal Medicine
PROC: 5A1945Z Respiratory Ventilation, 24-96 Consecutive Hours (ICD-10-PCS; principal; 2018-08-30)
PROC: 0BH17EZ Insertion of Endotracheal Airway into Trachea, Via Natural or Artificial Opening (ICD-10-PCS; principal; 2018-08-30)
PROC: 5A1D70Z Performance of Urinary Filtration, Intermittent, Less than 6 Hours Per Day (ICD-10-PCS; 2018-09-01)
PROC: 0JBM0ZZ Excision of Left Upper Leg Subcutaneous Tissue and Fascia, Open Approach (ICD-10-PCS; 2018-09-01)
PROC: 5A1D70Z Performance of Urinary Filtration, Intermittent, Less than 6 Hours Per Day (ICD-10-PCS; 2018-09-03)
DX: A41.9 Sepsis, unspecified organism (principal); L89.223 Pressure ulcer of left hip, stage 3; J96.22 Acute and chronic respiratory failure with hypercapnia; N18.6 End stage renal disease; R65.21 Severe sepsis with septic shock; I48.92 Unspecified atrial flutter; G82.20 Paraplegia, unspecified; E66.2 Morbid (severe) obesity with alveolar hypoventilation; K92.2 Gastrointestinal hemorrhage, unspecified; G93.40 Encephalopathy, unspecified; S82.102A Unspecified fracture of upper end of left tibia, initial encounter for closed fracture; I12.0 Hypertensive chronic kidney disease with stage 5 chronic kidney disease or end stage renal disease; E78.00 Pure hypercholesterolemia, unspecified; J44.9 Chronic obstructive pulmonary disease, unspecified; E11.51 Type 2 diabetes mellitus with diabetic peripheral angiopathy without gangrene; E87.6 Hypokalemia; I49.5 Sick sinus syndrome; E11.42 Type 2 diabetes mellitus with diabetic polyneuropathy; E11.319 Type 2 diabetes mellitus with unspecified diabetic retinopathy without macular edema; E11.22 Type 2 diabetes mellitus with diabetic chronic kidney disease; I46.9 Cardiac arrest, cause unspecified; I95.9 Hypotension, unspecified; I48.2 Chronic atrial fibrillation; L89.899 Pressure ulcer of other site, unspecified stage; S82.52XA Displaced fracture of medial malleolus of left tibia, initial encounter for closed fracture; M19.90 Unspecified osteoarthritis, unspecified site; M48.061 Spinal stenosis, lumbar region without neurogenic claudication; Z66 Do not resuscitate; L89.150 Pressure ulcer of sacral region, unstageable; E78.5 Hyperlipidemia, unspecified; E11.621 Type 2 diabetes mellitus with foot ulcer; Z88.8 Allergy status to other drugs, medicaments and biological substances; Z90.49 Acquired absence of other specified parts of digestive tract; Z95.0 Presence of cardiac pacemaker; Z79.899 Other long term (current) drug therapy; Z88.6 Allergy status to analgesic agent; Z89.511 Acquired absence of right leg below knee; Z82.49 Family history of ischemic heart disease and other diseases of the circulatory system; Z83.3 Family history of diabetes mellitus; Z87.891 Personal history of nicotine dependence; Z79.01 Long term (current) use of anticoagulants; Z68.28 Body mass index [BMI] 28.0-28.9, adult; X58.XXXA Exposure to other specified factors, initial encounter; Y93.89 Activity, other specified; Y92.89 Other specified places as the place of occurrence of the external cause; Y99.8 Other external cause status
CPT/HCPCS: 10078; 32100